=== PATIENT | female | born 1935 | race Caucasian/White ===

== ENCOUNTER 2016-10-25 12:17 | Inpatient (IN) | payer MEDICARE, OTHER ==
[2016-10-25] VITALS (23 sets, daily range): BP systolic 122–155; BP diastolic 42–87; PULSE 60–105; RESP 15–25; Ht 157.5 cm; Wt 65.0 kg
[~2016-10-25] VITALS: Ht 157.5 cm; Wt 65.0 kg
[2016-10-25 12:39] LABS: BASOPHILS % 0.3 % (0.0-2.0); EOSINOPHILS % 0.2 % (0.0-7.0); HEMATOCRIT 33.7 % (37.0-47.0); HEMOGLOBIN 11.1 g/dl (12.0-16.0); LYMPHOCYTES # 1.5 10^3/ul (0.8-2.9); LYMPHOCYTES % 15.1 % (15.0-51.0); MEAN CORPUSCULAR HEMOGLOBIN 30.5 pg (29.0-33.0); MEAN CORPUSCULAR HGB CONC 32.9 g/dl (32.0-37.0); MEAN CORPUSCULAR VOLUME 92.6 fl (82.0-101.0); MONOCYTE # 0.5 10^3/ul (0.3-0.9); MONOCYTES % 5.3 % (0.0-11.0); NEUTROPHILS % 78.4 % (39.0-77.0); PLATELET COUNT 242 10^3/UL (140-415); RED BLOOD COUNT 3.64 10^6/ul (4.20-5.40); RED CELL DISTRIBUTION WIDTH 13.8 % (11.5-14.5); WHITE BLOOD COUNT 10.2 10^3/ul (4.8-10.8)
[2016-10-25 12:53] LABS: ALBUMIN 4.2 g/dl (3.3-4.9); ALBUMIN/GLOBULIN RATIO 1.31; CALCIUM 8.9 mg/dl (8.4-10.2); CREATININE 1.42 mg/dl (0.44-1.00); POTASSIUM 4.4 mmol/L (3.5-5.1); TOTAL PROTEIN 7.4 g/dl (6.1-8.1)
--- NOTE | 2016-10-25 12:53 | RADRPT ---
PROCEDURE: XR Chest. CLINICAL INDICATION: Chest pain . TECHNIQUE: Single frontal chest x-ray. COMPARISON: None. FINDINGS: The lungs are clear of acute infiltrates, edema, effusions, or masses. Calcific atherosclerosis of t he aorta and mitral valve is present.. The cardiomediastinal silhouette is unremarkable. The osseou s structures are intact. There is old fracture of the left humeral head. IMPRESSION: No acute cardiopulmonary disease. 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 Old healed fracture of the left humeral head. RPTAT: GG .Mariano Garland MD, MD Date Time Electronically viewed and signed by .Mariano Garland MD, MD on 10/25/2016 12:52 .L/
--- NOTE | 2016-10-25 12:55 | ERA ---
ER Documentation Chief Complaint Date/Time DATE: 10/25/16 TIME: 12:48 Chief Complaint BIB RA FOR EVAL OF BACK PAIN. STEMI IN FIELD EKG. ASA 325MG GIVEN IN FIELD HPI 81-year-old female brought to the emergency department by ambulance for evaluation of a possible STEMI. Patient was in her usual state of health until yesterday which time she began having neck pain that she described as a cramping and pressure-like discomfort that radiated from the top of her chest into both sides of her neck. She had these symptoms throughout the course of the night and this morning passed out. She reported no palpitations or worsening chest pain prior to passing out. I have reviewed the principal technologist pre-hospital care. Pre-hospital vital signs were reviewed. Patient was hypotensive in the field Pre-hospital diagnostic tests were reviewed. Crate Tier EKG noted inferior STEMI Upon arrival, she continues to have neck pain but no chest pain or palpitations. ROS All systems reviewed and are negative except as per history of present illness. PMhx/Soc History of Surgery: Yes (CHOLECYSTECTOMY ) Anesthesia Reaction: No Hx Neurological Disorder: No Hx Respiratory Disorders: No Hx Cardiac Disorders: Yes (HTN) Hx Psychiatric Problems: No Hx Miscellaneous Medical Probl: No Hx Alcohol Use: No Hx Substance Use: No Hx Tobacco Use: No Smoking Status: Never smoker FmHx No history of heart disease Physical Exam Vitals Vital Signs Date Time Temp Pulse Resp B/P Pulse Ox O2 Delivery O2 Flow Rate FiO2 10/25/16 12:39 60 17 125/38 99 2.0 10/25/16 12:23 97.9 55 17 131/49 99 10/25/16 12:20 Nasal Cannula 2 Physical Exam GENERAL: The patient is well developed and appropriate for usual state of health in no apparent distress HEENT: Pupils equal, round, and reactive to light. EOMI. There is no scleral icterus. NECK: C-spine is soft and supple, there is no meningismus. There is no cervical lymphadenopathy. LUNGS: Clear to auscultation bilaterally. There are no rales, wheezes or rhonchi. HEART: Regular rate and rhythm, no murmurs, clicks, rubs or gallops. ABDOMEN: Soft, non-tender, non-distended. There are bowel sounds in all four quadrants. No rebound or guarding. EXTREMITIES: There is no peripheral cyanosis or edema. No focal swelling or erythema. NEURO: The patient moves all four extremities with 5/5 strength. Cranial nerves II - XII are intact. Normal gait. Alert and oriented SKIN: There is no apparent rash or petechiae. HEME/LYMPHATIC: There is no evidence of excessive bruising or lymphedema. PSYCHIATRIC: The patient does not appear anxious or depressed. Result Diagram: 10/25/16 1230 Results 24 hrs Laboratory Tests Test 10/25/16 12:30 White Blood Count 10.210^3/ul Red Blood Count 3.6410^6/ul Hemoglobin 11.1g/dl Hematocrit 33.7% Mean Corpuscular Volume 92.6fl Mean Corpuscular Hemoglobin 30.5pg Mean Corpuscular Hemoglobin Concent 32.9g/dl Red Cell Distribution Width 13.8% Platelet Count 63918^3/UL Mean Platelet Volume 10.0fl Neutrophils % 78.4% Lymphocytes % 15.1% Monocytes % 5.3% Eosinophils % 0.2% Basophils % 0.3% Nucleated Red Blood Cells % 0.0/100WBC Neutrophils # 8.010^3/ul Lymphocytes # 1.510^3/ul Monocytes # 0.510^3/ul Eosinophils # 0.010^3/ul Basophils # 0.010^3/ul Nucleated Red Blood Cells # 0.010^3/ul Procedures/MDM Patient was taken to a room, seen and evaluated. Comfort measures were initiated. Diagnostic tests were ordered and reviewed. 3 LEAD RHYTHM STRIP: Sinus bradycardia Crate Tier 12 lead EKG interpreted by myself: Rate/rhythm: Sinus bradycardia Lincoln/intervals: Normal Ischemia: ST elevations in leads II, III and aVF with reciprocal changes in leads I and aVL Impression: Inferior STEMI Crate Tier EKG was repeated in the field and indicated no significant changes with ongoing STEMI indications EKG upon arrival in the emergency department interpreted by myself: Rate/rhythm: Normal sinus rhythm Lincoln/intervals: Normal Ischemia: Nonspecific ST and T-wave changes with no ST elevation Impression: Nonspecific EKG with the inferior ST elevation changes resolved RADIOLOGY: reviewed with the radiologist CONSULTATION: Code STEMI was called pre-arrival. Dr. Johnson, our on-call exterminator helper termite was called prior to arrival. hospitalist was notified for admission REEVALUATION: Patient had no bradycardia or dysrhythmia. Arrangements were made to the hospital via the maintenance shop laborer MEDICAL DECISION MAKIN-year-old female presents with symptoms consistent with an inferior ST elevation [place] which is been indicated on her EKG. Patient is taken expeditiously to the [facility] for emergent PCI Departure Diagnosis: Primary Impression: ST elevation myocardial infarction (STEMI) Condition: Critical ANDREA GRULLON Oct 25, 2016 12:55
[2016-10-25 13:09] LABS: TROPONIN-I 0.222 ng/ml (0.00-0.12)
--- NOTE | 2016-10-25 14:01 | SIPON ---
Date/Time of Note Date/Time of Note DATE: 10/25/16 TIME: 13:59 Operative Report Preoperative Diagnosis 1.Acute PR/STEMI 2.Syncope 3.Chest pain Postoperative Diagnosis 1.Obstructive cad LMN/ostial LAD/mid LAD Operation/Procedure Performed 1.[facility] Surgeon see signature line transition assistant Maurice Márquez Anesthesia: moderate sedation Estimated blood loss: minimal Transfusion Required none Specimen NA Grafts/Implants none Complications none AMNA FUENTES Oct 25, 2016 14:01
[2016-10-25] MEDS ORDERED: SOD CHLORIDE 0.9% 1,000 ML IV SCH (14:02)
[2016-10-25] MEDS ORDERED: HEPARIN 1000 UNITS/ML 10 ML INJ IV ONE (14:30)
[2016-10-25] MEDS ORDERED: AL HYDROX/MG HYDROX/SIMETH 30 ML CUP PO PRN (14:30)
[2016-10-25] MEDS ORDERED: ACETAMINOPHEN 325 MG TAB PO PRN (14:30)
[2016-10-25] MEDS ORDERED: ONDANSETRON 4 MG INJ IV PRN (14:30)
[2016-10-25] MEDS ORDERED: HEPARIN 1000 UNITS/ML 10 ML INJ IV PRN ×3 (14:30→17:00)
[2016-10-25] MEDS ORDERED: HEPARIN 1000 UNITS/ML 10 ML INJ IV SCH (15:00)
[2016-10-25] MEDS ORDERED: HEPARIN 25000 UNITS/D5W 250 ML IV SCH ×2 (15:00→17:00)
[2016-10-25 15:30] LABS: INR 1.14; PROTIME 14.6 Sec (12.2-14.2); PT RATIO 1.1
--- NOTE | 2016-10-25 15:51 | RADRPT ---
Echocardiogram Report Patient Name: RACHEL GERBER Gender: Female Date: 1935 Study Date: 25-Oct-2016 Photogravure Press Operator: Italo Anand RDCS Location: PACU Ref. Physician: AMNA JOHNSON Quality: Adequate Procedures: Transthoracic echocardiogram with complete 2D, M-Mode, and doppler examination. Indications: NSTEMI. 2D/M Mode Doppler Measurement Value Normal Ranges Measurement Value Normal Ranges LVIDd 2D 2.8 3.5 - 5.6 cm LVOT Peak Del 0.7 m/sec LVIDs 2D 1.6 2.1 - 4.1 cm LVOT Peak PG 2.0 mmHg LVPWd 2D 1.0 0.6 - 1.1 cm MV E Peak Del 0.9 m/sec IVSd 2D 1.1 0.6 - 1.1 cm MV A Peak Del 1.1 m/sec AoR Diam 2D 2.2 2.0 - 3.7 cm MV E/A 0.9 EDV 2D 30.5 cm3 MV Decel Time 241 msec ESV 2D 4.3 cm3 MV Decel Stanly 4 LA Dimen 2D 3.5 2.3 - 4.0 cm MV E/A 0.9 TR Peak Del 3.1 m/sec TR Peak PG 37.4 mmHg RVSP 52.0 mmHg Findings Left Ventricle: Normal left ventricular systolic function. Normal left ventricular cavity size. Mild concentric left ventricular hypertrophy. Ejection fraction is visually estimated at 5560 %. Tissue Doppler/Mitral Doppler indices are consistent with impaired relaxation (Stage I diastolic dysfunction). These segments of the LV are hypokinetic anteroseptum mid segment. Right Ventricle: Normal right ventricular size. Normal right ventricular systolic function. Left Atrium: The left atrium is normal in size. Right Atrium: There is moderate enlargement of right atrium. Mitral Valve: Moderate mitral annular calcification. Mild mitral valve regurgitation. Aortic Valve: No significant aortic stenosis or insufficiency. Aortic cusps appear mildly calcified. Tricuspid Valve: Estimated peak PA systolic pressure 52 mmHg. Tricuspid valve appears mildly thickened. There is moderate tricuspid regurgitation. Pulmonic Valve: Normal pulmonic valve appearance. Pericardium: Normal pericardium with no significant pericardial effusion. Aorta: Normal aortic root. IVC: Dilated IVC without respiratory collapse consistent with elevated right atrial pressure. Conclusions 1.Normal left ventricular systolic function. Normal left ventricular cavity size. Mild concentric left ventricular hypertrophy. Ejection fraction is visually estimated at 55-60 %. Tissue Doppler/Mitral Doppler indices are consistent with impaired relaxation (Stage I diastolic dysfunction). These segments of the LV are hypokinetic anteroseptum mid segment. 2.Moderate mitral annular calcification. Mild mitral valve regurgitation. 3.Estimated peak PA systolic pressure 52 mmHg. Tricuspid valve appears mildly thickened. There is moderate tricuspid regurgitation. 4.There is moderate enlargement of right atrium. Electronically Signed By: Amna Johnson 25-Oct-2016 15:51:05 -0700 Patient Name: RACHEL GERBER Study Date: 25-Oct-2016 [id number]
--- NOTE | 2016-10-25 15:51 | OPR ---
DATE OF OPERATION: 10/25/2016 OPERATION PERFORMED: 1. Left heart catheterization. 2. Coronary angiography. ATTENDING PHYSICIAN: Dr. Parviz Johnson. REFERRING PHYSICIAN: Dr. Yanick Carlton. ANESTHESIA: Conscious and local. INDICATION: Possible acute myocardial infarction. BRIEF HISTORY: Ms. Nadia Adam is an 81-year-old female who initially presented status post syncopal episode, some back and jaw pain and had inferior ST elevations by EKG. Given these findings, she was brought to cardiac tag and label cutter to assess possibility of significant coronary artery disease leading to ST elevations and acute myocardial infarction. OPERATIVE PROCEDURE: After informed consent was obtained, patient was taken to the [facility] Cardiac Resident Associate, where her right area was prepped and draped in the sterile fashion. 2 percent lidocaine was infiltrated in the right radial in order to achieve adequate local anesthesia. Modified Seldinger technique, the radial was cannulated and a 6 sheath was placed, a 5-Austrian JL3 was used to cannulate left main coronary ostium successfully. Subsequent this was exchanged for a Edison catheter and was used to cannulate the left main coronary ostium, which was very short and kept flexing and cannulating into the circ refluxing to the LAD. After which contrast injection and multiple views were obtained. Edison was then used to cannulate the right unsuccessfully. This was exchanged for a HJR which still accessible and finally a Segun right posterior. A 5- Austrian was used to cannulate the right coronary ostium and contrast injection was used with multiple views of the right coronary artery was obtained. At this time this was removed and used a Q3 to better cannulate the left main into the LAD and further images were undertaken to ascertain if the patient had an ostial LAD lesion or a distal left main lesion. After which this was removed and at this time the patient started having spasm in her vessel as we attempted to pass the catheter and it was elected to stop the procedure. This completed procedure and there were no complications. Sheath was removed. TR band was applied. At this time the patient received a radial cocktail of 2.5 mg of verapamil, 200 mcg of IC nitroglycerin and later received 2005 gram of heparin IV. FINDINGS: Coronary angiography. Left main short, almost nonexistent with the appearance of probable left main lesion of the ostial LAD with left main hazy and appears to be subtotally occluded. A 2.5 mm vessel in the LAD, there is another hazy area with approximately 70-80 percent. In the midportion LAD there is another lesion approximately 40 percent in the LAD. In the very distal portion has another lesion of approximately 80 percent. There is a proximal branching diagonal, 2 mm vessel, which also appears to have ostial stenosis of approximately 60-70 percent. The circumflex approximately is a 2.5 mm vessel, and appears to have an ostial 30 to 40 percent stenosis. The remainder of the circ thereafter is free of significant focal stenosis. The right coronary artery proximally is a 2.5 mm vessel, and likely appears to have an ostial stenosis as well., probable 60 percent. Midportion right coronary artery is 40 to 50 percent stenosis. TOTAL FLUOROSCOPY TIME: 29 minutes. TOTAL CONTRAST: 175 cc. IMPRESSION: 1. Likely left main extending into ostial left anterior descending (LAD) high-grade with additional mid left anterior descending (LAD) high-grade stenosis. 2. Ostial right coronary artery stenosis. RECOMMENDATIONS: 1. Maximize medical management. 2. The patient admitted to the ICU for post cath observation. Continue him observation for presenting symptoms. 3. We will obtain cardiac surgical consult given distal left main and also for consideration of possible coronary artery bypass graft surgery. 4. Obtain 2D echo to assess the patient's baseline ejection fraction. Dictated By: Parviz Johnson MD /martin/sharon /Document#: [id number]
[2016-10-25] MEDS ORDERED: NACL 0.9% 3 ML SYG IV SCH (16:00)
[2016-10-25 16:02] LABS: PARTIAL THROMBOPLASTIN TIME 93.2 Sec (25.0-35.0)
--- NOTE | 2016-10-25 16:29 | CONS ---
Date/Time of Note Date/Time of Note DATE: 10/25/16 TIME: 16:22 Assessment/Plan Assessment/Plan Additional Assessment/Plan 81 year old female with ostial LAD and moderate RCA stenosis. I discussed with patient and her daughter the benefits, risks and alternatives of surgery. The risks are but not limited to bleeding, infection, stroke, renal and respiratory failure and . She understands and consents. I will obtain carotid duplex and plan for surgery tomorrow. Consultation Date/Type/Reason Admit Date/Time Oct 25, 2016 at 14:03 Date of Consultation: Oct 25, 2016 Reason for Consultation evaluate for CABG Referring Provider: AMNA FUENTES Hx of Present Illness 81 year old female who was having chest pain last night and this morning and felt faint after going to the bathroom. She then had emesis and was brought in by paramedics and in the ER she was found to have ST elevation. She was taken to soap slabber and found to have ostial LAD and 50-60% mid RCA. She currently has no chest pain and her EKG has normalized. We are asked to see her regarding CABG. Constitutional: No chills, No diaphoresis, No disoriented, No febrile, No improved, No no complaints, No other, No poor po, No requiring IVF, No requiring O2 Eyes: No discharge, No no complaints, No other, No pain, No redness, No visual change ENT: No bleeding, No congestion, No discharge, No dysphagia, No no complaints, No other, No pain, No sore throat Respiratory: No cough, No no complaints, No other, No pain, No pleuritic pain, No shortness of breath, No sputum, No wheezing Cardiovascular: chest pain Gastrointestinal: No blood, No constipation, No decreased appetite, No diarrhea , No flatus, No nausea, No no complaints, No other, No pain, No passing stool, No vomiting Genitourinary: No bleeding, No discharge, No dysuria, No flank pain, No hematuria, No no complaints, No other Musculoskeletal: No back pain, No bone/joint pain, No neck pain, No no complaints, No other, No restricted range of motion, No swelling Skin: No bruising, No erythema, No laceration, No no complaints, No other, No pruritis, No rash, No skin lesions Neurologic: No confusion, No dizziness, No focal-weakness, No headache, No no complaints, No other, No seizure, No syncope Endocrine: No dry skin, No no complaints, No other, No polydypsia, No polyuria , No temp intolerance Lymphatic: No adenopathy, No lymphadema, No no complaints, No other, No tender nodes Psychological: No anxiety, No confusion, No depression, No nl mood/affect, No no complaints, No other, No suicidal Immunologic: No immunodeficiency, No no complaints, No other, No pruritis, No rhinitis, No urticaria Past Medical History Medical History: hypertension Past Surgical History Past Surgical Hx: cholecystectomy Social History Alcohol Use: none Smoking Status: Never smoker Drug Use: none Exam/Review of Systems Vital Signs Vitals Vital Signs Date Time Temp Pulse Resp B/P Pulse Ox O2 Delivery O2 Flow Rate FiO2 10/25/16 15:30 69 19 132/69 99 2.0 10/25/16 14:20 98.2 10/25/16 12:20 Nasal Cannula Exam Constitutional: No alert, No distress, No frail, No non-verbal, No obese, No oriented, No other, No well developed Psych: No anxiety, No confusion, No depression, No nl mood/affect, No no complaints, No other, No suicidal Head: No atraumatic, No hematomas, No lacerations, No normocephalic, No other Eyes: No EOMI, No PERRL, No fundi, disc, No icteric, No nl conjunctiva, No nl lids, No nl sclera, No other ENMT: No intubated, No mucosa pink and moist, No nl external ears & nose, No nl lips & teeth, No nl nasal mucosa & septum, No other, No tympanic membranes Neck: No bruits, No jvd, No masses, No non-tender, No nuchal rigidity, No other , No supple, No thyromegaly Respiratory: No clear to auscultation, No congested cough, No crackles/rales, No diminished breath sounds, No intercostal retraction, No labored breathing, No normal air movement, No other, No respirations, No tactile fremitus, No wheezing Cardiovascular: No S3, No S4, No bruits, No diastolic murmur, No edema, No gallop, No irregular rhythm, No jugular venous distention (JVD), No murmurs/ extra sounds, No nl pulses, No other, No regular rate and rhythm, No rub, No systolic murmur Gastrointestinal: No ascites, No bowel sounds, No distended, No firm, No hepatomegaly, No mass, No nl liver, spleen, No non-tender, No other, No rebound or guarding, No soft, No splenomegaly, No surgical scars, No tender Genitourinary - Female: No CMT, No CVA tenderness, No nl adnexae, No nl external genitalia, No other, No uterus Musculoskeletal: No joint tenderness, No muscle tone, No muscle weakness, No nl extremities to inspection, No nl gait and stance, No other, No range of motion, No spine non-tender, No swelling Extremities: No calf tenderness, No clubbing, No cyanosis, No edema, No normal pulses, No other, No palpable cord, No pitting pedal edema, No tenderness Neurological: No RADIO TIME BUYER II-XII intact, No DTR's symmetric, No confused, No focal weakness, No lethargic, No nl mental status, No nl speech, No nl strength, No numbness, No other, No reflexes, No unresponsive Skin: No diaphoresis, No ecchymosis, No laceration, No nl turgor, No other, No puncture, No rash or lesions Lymph: No enlarged, No nl lymph nodes, No nontender, No other Results Result Diagram: 10/25/16 1230 10/25/16 1230 Results 24 hrs Laboratory Tests Test 10/25/16 12:30 10/25/16 15:00 White Blood Count 10.2 Red Blood Count 3.64 L Hemoglobin 11.1 L Hematocrit 33.7 L Mean Corpuscular Volume 92.6 Mean Corpuscular Hemoglobin 30.5 Mean Corpuscular Hemoglobin Concent 32.9 Red Cell Distribution Width 13.8 Platelet Count 242 Mean Platelet Volume 10.0 Neutrophils % 78.4 H Lymphocytes % 15.1 Monocytes % 5.3 Eosinophils % 0.2 Basophils % 0.3 Nucleated Red Blood Cells % 0.0 Neutrophils # 8.0 H Lymphocytes # 1.5 Monocytes # 0.5 Eosinophils # 0.0 Basophils # 0.0 Nucleated Red Blood Cells # 0.0 Sodium Level 135 Potassium Level 4.4 Chloride Level 106 Carbon Dioxide Level 12 L Anion Gap 21 H Blood Urea Nitrogen 30 H Creatinine 1.42 H Glucose Level 193 Calcium Level 8.9 Total Bilirubin 1.0 Direct Bilirubin 0.00 Indirect Bilirubin 1.0 Aspartate Amino Transf (AST/SGOT) 54 H Alanine Aminotransferase (ALT/SGPT) 38 Alkaline Phosphatase 81 Troponin I 0.222 *H Total Protein 7.4 Albumin 4.2 Globulin 3.20 Albumin/Globulin Ratio 1.31 Prothrombin Time 14.6 H Prothrombin Time Ratio 1.1 INR International Normalized Ratio 1.14 Activated Partial Thromboplast Time 93.2 *H Medications Medications Current Medications Acetaminophen (Tylenol Tab) 650 mg Q4H PRN PO NON-CARDIAC PAIN LEVEL (1-3); Start 10/25/16 at 14:30 Al Hydrox/Mg Hydrox/Simethicone (Mag-Al Plus) 30 ml Q4H PRN PO GASTROINTESTINAL UPSET; Start 10/25/16 at 14:30 Ondansetron HCl 4 mg 4 mg Q4H PRN IV NAUSEA AND/OR VOMITING; Start 10/25/16 at 14:30 Sodium Chloride (NS) 1,000 ml @ 75 mls/hr [id number] IV Last administered on 10/25t 14:47; Admin Dose 75 MLS/HR; Start 10/25/16 at 14:02; Stop 10/25/16 at 19: 01 Heparin Sodium (Porcine) 3900 unit 3,900 unit ONCE IV ; Start 10/25/16 at 15:00 ; Stop 10/25/16 at 23:59 Heparin Sodium (Porcine) (Heparin 97377 Units/250 ml) 250 ml @ 7.5 mls/hr Q24H IV ; Start 10/25/16 at 15:00 Heparin Sodium (Porcine) (Heparin (1000 Units/ml)) PRN PRN IV PENDING LAB VALUE; Start 10/25/16 at 15:00 Miscellaneous Information (* Miscellaneous Pharmacy Order) Discontinue current oral sulfonylur... ONCE ONCE XX ; Start 10/25/16 at 16:00; Stop 10/25/16 at 16: 01; Status UNV Diagnostic Test (Pha) (Accu-Chek) 1 ea 02 XX ; Start 10/26/16 at 02:00; Status UNV Insulin Glargine (Lantus) 10 unit DAILY@08 SC ; Start 10/26/16 at 08:00; Status UNV Miscellaneous Information (* Miscellaneous Pharmacy Order) HYPOGLYCEMIA PROTOCOL w... ONCE ONCE XX ; Start 10/25/16 at 16:00; Stop 10/25/16 at 16:01; Status UNV Miscellaneous Information (* Miscellaneous Pharmacy Order) Discontinue all previ... ONCE ONCE XX ; Start 10/25/16 at 16:00; Stop 10/25/16 at 16:01; Status UNV Insulin Aspart (Novolog Insulin Pen) NOVOLOG *MILD* ALGORI... Q4 SC ; Start at 17:00; Status UNV Miscellaneous Information (* Miscellaneous Pharmacy Order) Discontinue all previ... ONCE ONCE XX ; Start 10/25/16 at 16:00; Stop 10/25/16 at 16:01; Status UNV Aspirin (Aspirin) 81 mg DAILY PO ; Start 10/26/16 at 09:00; Status UNV Atorvastatin Calcium 80 mg 80 mg HS PO ; Start 10/25/16 at 21:00; Status UNV Insulin Human Regular 100 unit/ Sodium Chloride 100 ml @ 0 mls/hr Q0M ONCE IVPB ; Start 10/26/16 at 09:00; Stop 10/26/16 at 09:01 Norepinephrine 250 ml @ 0 mls/hr ONCE ONCE IV ; Start 10/26/16 at 09:00; Stop 10/26/16 at 09:01 Epinephrine 4 mg/ Dextrose 250 ml @ 0 mls/hr Q0M ONCE IV ; Start 10/26/16 at 09: 00; Stop 10/26/16 at 09:01 Phenylephrine HCl (Pedro-Syneph) 250 ml @ 0 mls/hr ONCE ONCE IV ; Start 10/26/16 at 09:00; Stop 10/26/16 at 09:01 Aspirin 600 mg 600 mg ONCE ONCE [place] ; Start 10/26/16 at 09:00; Stop 10/26/16 at 09:01 Heparin Sodium (Porcine) 85273 unit/Milrinone Lactate 10 mg/ Sodium Chloride 1, 011 ml @ 0 mls/hr ONCE ONCE SC ; Start 10/26/16 at 09:00; Stop 10/26/16 at 09: 01 Milrinone Lactate 2 mg/Sodium Chloride 52 ml @ 0 mls/hr ONCE ONCE IV ; Start at 09:00; Stop 10/26/16 at 09:01 Cefazolin Sodium/ Dextrose (Ancef 2 Gm/50 ml (Pmx)) 50 ml @ 100 mls/hr PRE-OP ONCE IVPB ; Start 10/25/16 at 16:30; Stop 10/25/16 at 16:59; Status UNV MOUNA CONNER MD Oct 25, 2016 16:29
[2016-10-25] MEDS ORDERED: GLUCOSE GEL 15 GRAM TUBE BUCCAL PRN (16:30)
[2016-10-25] MEDS ORDERED: DEXTROSE 50% 50 ML SYRINGE IV PRN ×2 (16:30)
[2016-10-25] MEDS ORDERED: CEFAZOLIN 2 GM/50 ML (PMX) 50 ML IVPB ONE (16:30)
[2016-10-25] MEDS ORDERED: GLUCAGON 1 MG INJ IM PRN (16:30)
[2016-10-25] MEDS ORDERED: GLUCOSE GEL 15 GRAM TUBE PO PRN ×2 (16:30)
--- NOTE | 2016-10-25 16:52 | RADRPT ---
PROCEDURE: Portable chest x-ray. CLINICAL INDICATION: 81 years of age, female. Preop open heart surgery. Code STEMI. TECHNIQUE: Portable AP view of the chest. COMPARISON: Chest x-ray from earlier the same day FINDINGS: Atherosclerotic calcification thoracic aorta. Normal heart size. There is dense calcification of the mitral valve annulus. Mediastinal contours are normal. Decreased lung volumes with vascular crowding versus mild edema. Negative for focal lung consolidati on. Negative for pleural effusion or pneumothorax. Bones are osteopenic. There is deformity of the proximal left humerus from an age indeterminate frac ture that is unchanged from prior exam. IMPRESSION: Decreased lung volumes with vascular crowding versus mild edema. Age indeterminate fracture deformity proximal left humerus is unchanged from prior exam. If there is left shoulder pain, recommend dedicated left shoulder x-rays. RPTAT: HCTS Physician Jossie Date Time Electronically viewed and signed by Physician Jossie on 10/25/2016 16:51 /
[2016-10-25] MEDS: INSULIN ASPART [NOVOLOG] 3 ML PEN SC SCH ×4 (17:00→20:37)
--- NOTE | 2016-10-25 17:18 | RADRPT ---
PROCEDURE: US Carotids. CLINICAL INDICATION: Preop CABG. TECHNIQUE: Multiple sonographic of the carotid arteries were obtained utilizing johnson scale imaging . Color and Doppler imaging was performed. The images were reviewed on a PACS workstation. COMPARISON: No prior studies are available for comparison. FINDINGS: Location Right Left CCA 89 cm/sec 83 cm/sec Prox ICA 88 cm/sec 42 cm/sec Mid ICA 90 cm/sec 49 cm/sec Dist ICA 73 cm/sec 58 cm/sec ECA 83 cm/sec 81 cm/sec ICA/CCA 1.0 0.9 Antegrade flow is seen within the vertebral arteries bilaterally. Moderate to heavy bilateral athero sclerotic plaque is present, especially in the left proximal common carotid artery and in the right mid internal carotid artery. No hemodynamically significant stenosis or occlusion is identified. IMPRESSION: 1. Moderate to heavy bilateral atherosclerotic plaque as above without evidence for focal hemodynami leola significant stenosis - validated velocity measurements with angiographic measurements, velocit y criteria are extrapolated from diameter data as defined by the Society of Radiologists in Ultrasou nd Consensus Conference Radiology 2003; 229;340-346. This study does indirectly reference the measu rement of the distal ICA diameter as the denominator for stenosis measurement. 2. Antegrade flow seen within the vertebral arteries bilaterally. SRU Consensus Conference Criteria for the Diagnosis of Carotid Artery Stenosis Degree of Stenosis, % ICA PSV, cm/sec Plaque Estimate, % ICA/CCA PSV Ratio Normal <125 None <2.0 <50 <125 <50 <2.0 50 69 125-230 >50 2.0-4.0 >70 but less than near occlusion >230 >50 <4.0 Near occlusion High, low, or undetectable Visible Variable Total occlusion Undetectable Visible, no detectable lumen Not applicable *Cartoid artery stenosis: johnson-scale and Doppler US diagnosis. Society of Radiologists in Ultrasound Consensus Conference. Radiology 2003; 229: 340-346 RPTAT: JJ .Gene Knowles MD, Date Time Electronically viewed and signed by .Gene Knowles MD, MD on 10/25/2016 17:18 .A/
[2016-10-25 19:40] LABS: CK-MB 3.99 ng/ml (0.0-2.4)
[2016-10-25 19:54] LABS: TROPONIN-I 0.455 ng/ml (0.00-0.12)
[2016-10-25] MEDS ORDERED: ATORVASTATIN 80 MG TAB PO SCH (21:00)
[2016-10-26] VITALS (24 sets, daily range): BP systolic 85–153; BP diastolic 27–77; PULSE 66–150; RESP 10–28; TEMP 94.3–95.4
[2016-10-26] MEDS ORDERED: ACCU-CHEK XX SCH (02:00)
[2016-10-26 02:19] LABS: CK-MB 3.47 ng/ml (0.0-2.4)
[2016-10-26 02:24] LABS: TROPONIN-I 0.543 ng/ml (0.00-0.12)
[2016-10-26 06:14] LABS: BASOPHILS % 0.5 % (0.0-2.0); EOSINOPHILS # 0.1 10^3/ul (0.0-0.5); EOSINOPHILS % 0.8 % (0.0-7.0); HEMATOCRIT 30.4 % (37.0-47.0); HEMOGLOBIN 10.3 g/dl (12.0-16.0); LYMPHOCYTES # 1.9 10^3/ul (0.8-2.9); LYMPHOCYTES % 24.3 % (15.0-51.0); MEAN CORPUSCULAR HEMOGLOBIN 30.2 pg (29.0-33.0); MEAN CORPUSCULAR HGB CONC 33.9 g/dl (32.0-37.0); MEAN CORPUSCULAR VOLUME 89.1 fl (82.0-101.0); MEAN PLATELET VOLUME 10.3 fl (7.4-10.4); MONOCYTE # 0.8 10^3/ul (0.3-0.9); MONOCYTES % 9.7 % (0.0-11.0); NEUTROPHIL # 5.1 10^3/ul (1.6-7.5); NEUTROPHILS % 64.3 % (39.0-77.0); PLATELET COUNT 210 10^3/UL (140-415); RED BLOOD COUNT 3.41 10^6/ul (4.20-5.40); RED CELL DISTRIBUTION WIDTH 13.8 % (11.5-14.5); WHITE BLOOD COUNT 7.9 10^3/ul (4.8-10.8)
[2016-10-26] MEDS ORDERED: HEPARIN 1000 UNITS/ML 10 ML INJ ONE ×7 (06:48→17:09)
[2016-10-26] MEDS ORDERED: VANCOMYCIN 1 GM INJ ONE (06:48)
[2016-10-26 06:59] LABS: ALBUMIN 3.5 g/dl (3.3-4.9); ALBUMIN/GLOBULIN RATIO 1.16; BILIRUBIN,INDIRECT 2.1 mg/dl (0-1.1); BILIRUBIN,TOTAL 2.1 mg/dl (0.2-1.3); CALCIUM 9.1 mg/dl (8.4-10.2); CREATININE 0.99 mg/dl (0.44-1.00); POTASSIUM 3.7 mmol/L (3.5-5.1); TOTAL PROTEIN 6.5 g/dl (6.1-8.1)
--- NOTE | 2016-10-26 07:06 | CONS ---
DATE OF ADMISSION: 10/25/2016 DATE OF CONSULTATION: 10/25/2016 REASON FOR CONSULTATION: Acute myocardial infarction. REQUESTING PHYSICIAN: Emergency Room attending. HISTORY OF PRESENT ILLNESS: Ms. Adam is an 81-year-old female without prior cardiac history, who initially presented with complaints of back pain and throat pain. Patient had the paramedics called and initial vital signs of 97.9, blood pressure 131/49, pulse 55, respirations 17, saturation 98 percent. Patient's electrocardiogram revealed sinus bradycardia, rate of 57, prominent ectopic atrial bradycardia with inferior ST elevations and lateral reciprocal depressions. The patient received an aspirin en route and was transferred to [facility]. Upon arrival at [facility], the patient's EKG has had resolution of ST elevations. Patient does have some residual chest pain. Patient tells me with family at bedside additionally that she had had pain the previous night and had a possible syncopal episode. Thus far, patient's labs are notable for white count of 10.2, hemoglobin 11.1, platelet count 242,000. Remainder of labs are pending. PAST MEDICAL HISTORY: As above in HPI. MEDICATION: Medications currently in the hospital are pending at this time. ALLERGIES: NO KNOWN DRUG ALLERGIES. SOCIAL HISTORY: No tobacco, EtOH or illicit drug use. FAMILY HISTORY: Negative for sudden cardiac or early CAD. REVIEW OF SYSTEMS: As above in HPI. In addition: CONSTITUTIONAL: No fevers or chills. PULMONARY: Positive for shortness breath. CARDIOVASCULAR: Intermittent chest pain. GASTROINTESTINAL: No vomiting. GENITOURINARY: No hematuria. MUSCULOSKELETAL: Degenerative joint disease. PSYCH: Patient has depression. NEUROLOGIC: No documented history of CVA. PHYSICAL EXAMINATION: VITAL SIGNS: Temperature of 97.9, blood pressure most recently 125/38, pulse 60, respiratory rate 17, saturation 98 percent. GENERAL: The patient is alert, awake, complaining of intermittent chest pain, neck and back pain. NECK: JVP approximately 8 cm water. LUNGS: Fair air movement throughout. HEART: Regular rate and rhythm. Normal S1, S2. A 1/6 systolic murmur. Nondisplaced PMI. ABDOMEN: Positive bowel sounds, soft. EXTREMITIES: No edema, 1+ pulses bilateral posterior tibial LABORATORY: As above in HPI. No further labs reviewed. IMAGING STUDIES: No imaging studies for review this time. ECG as in HPI. No further imaging studies currently to be reviewed at this time. IMPRESSION: 1. Possible acute myocardial infarction by electrocardiogram. 2. Chest pain, possibly secondary to acute myocardial infarction. 3. Syncope. 4. Borderline hypertension. 5. Anemia, acute. RECOMMENDATIONS: 1. At this time, patient will be taken to the cardiac director of labor and delivery in order to assess possibility of significant obstructive coronary artery disease or obstructive lesion leading to symptoms of syncope and ST elevation on initial EKG. 2. Patient was given an aspirin. 3. Further recommendations for this patient will be made after completion of study. Dictated By: Parviz Johnson MD /martin/luzmaria /Document#: [id number] CC: Yanick Carlton MD;*[facility]*
[2016-10-26] MEDS: INSULIN ASPART [NOVOLOG] 3 ML PEN SC SCH (07:35)
[2016-10-26] MEDS ORDERED: INSULIN GLARGINE [LANtus] 3 ML PEN SC SCH (08:00)
[2016-10-26] MEDS ORDERED: MIDAZOLAM 5 ML ONE ×2 (08:44→11:30)
[2016-10-26] MEDS ORDERED: VANCOMYCIN 500MG INJ IMPLANTED ONE (08:45)
[2016-10-26] MEDS ORDERED: HEPARIN 1000 UNITS/ML 10 ML INJ IRR ONE (08:45)
[2016-10-26] MEDS ORDERED: PHENYLephrine (100 MCG/ML) 5ML SYG ONE ×4 (08:47→16:19)
[2016-10-26] MEDS ORDERED: CEFAZOLIN 2 GM/50 ML (PMX) 50 ML IVPB SCH (09:00)
[2016-10-26] MEDS ORDERED: HEPARIN (10000 UNITS/ML) 10,000 UNIT, MILRINONE LACTATE 10 MG in SOD CHLORIDE 0.9% 1,00... SC ONE (09:00)
[2016-10-26] MEDS ORDERED: EPINEPHrine 4 MG in DEXTROSE 5% 246 ML IV ONE (09:00)
[2016-10-26] MEDS ORDERED: PHENYLephrine 20MG IN 250 ML 250 ML IV ONE ×2 (09:00→19:00)
[2016-10-26] MEDS ORDERED: ASPIRIN 600 MG SUPP PR ONE (09:00)
[2016-10-26] MEDS ORDERED: ASPIRIN 81 MG TAB PO SCH (09:00)
[2016-10-26] MEDS ORDERED: NORepinephrine 8MG/250 ML (PMX 250 ML IV ONE (09:00)
[2016-10-26] MEDS ORDERED: MILRINONE LACTATE 2 MG in SOD CHLORIDE 0.9% 50 ML IV ONE (09:00)
[2016-10-26] MEDS ORDERED: INSULIN HUMAN REGULAR 100 UNIT in SOD CHLORIDE 0.9% 99 ML IVPB ONE (09:00)
[2016-10-26] MEDS ORDERED: ALBUMIN HUMAN 25% 200 ML ONE (09:06)
[2016-10-26] MEDS ORDERED: AMINOCAPROIC ACID 5 GM INJ ONE ×4 (09:06→19:21)
[2016-10-26] MEDS ORDERED: POTASSIUM CHLORIDE 40 MEQ INJ ONE (09:06)
[2016-10-26] MEDS ORDERED: CA CHLORIDE 10% 10 ML SYRINGE ONE ×2 (09:06→22:16)
[2016-10-26] MEDS ORDERED: LIDOCAINE 100 MG SYRINGE ONE (09:06)
[2016-10-26] MEDS ORDERED: PHENYLephrine 10 MG INJ ONE (09:06)
[2016-10-26] MEDS ORDERED: NA BICARBONATE 8.4% 50 ML SYG ONE ×3 (09:06→22:23)
[2016-10-26] MEDS ORDERED: MAGNESIUM SULFATE (MG) 50% 10 ML INJ ONE (09:06)
[2016-10-26] MEDS ORDERED: MANNITOL 25% 150 ML ONE (09:06)
[2016-10-26] MEDS ORDERED: PAPAVERINE 60 MG INJ IRR ONE (09:30)
[2016-10-26] MEDS ORDERED: CEFAZOLIN 1 GM INJ ONE ×3 (09:41→18:24)
[2016-10-26] MEDS ORDERED: PAPAVERINE 60 MG INJ ONE (10:08)
[2016-10-26] MEDS ORDERED: FUROSEMIDE 20 MG INJ ONE (10:58)
--- NOTE | 2016-10-26 11:29 | CONS ---
Date/Time of Note Date/Time of Note DATE: 10/26/16 TIME: 11:22 Assessment/Plan Assessment/Plan Chief Complaint/Hosp Course IMPRESSION: 1. Acute DC-minimally positive troponin 2.Cad-obstructive high grade ostail LAD with almost absence of true LMN(Thus LMN equivalent lesion). 2. Chest pain-secondary to DC 3. Syncope-in setting of acute DC and intial ASHLEY on ECG 4. Borderline hypertension. 5. Anemia, acute. Recc: -Tele -serial ecg's -Continue heparin -start statin -low dose BB -to OR roday for cabg Problems: Consultation Date/Type/Reason Admit Date/Time Oct 25, 2016 at 14:03 Initial Consult Date 10/25/16 Type of Consultation: cardiology Reason for Consultation Acute DC Referring Provider: AMNA FUENTES Exam/Review of Systems Vital Signs Vitals Vital Signs Date Time Temp Pulse Resp B/P Pulse Ox O2 Delivery O2 Flow Rate FiO2 10/26/16 08:00 71 10/26/16 08:00 98.0 16 147/77 100 Room Air 10/25/16 15:30 2.0 Intake and Output 10/25/16 10/25/16 10/26/16 15:00 23:00 07:00 Intake Total 0 ml 637.5 ml 45.5 ml Output Total 550 ml 404 ml 670 ml Balance -550 ml 233.5 ml -624.5 ml Exam Review of Systems: CONSTITUTIONAL: No fevers, chills. PULMONARY: mild sob CARDIOVASCULAR: No chest pain/palpitations GASTROINTESTINAL: No nausea/vomiting. GENITOURINARY: No hematuria/dysuria. MUSCULOSKELETAL: No myagias/arthalgias. PSYCHIATRIC: The patient denies depression. NEUROLOGIC: No weakness Constitutional: alert Psych: no complaints Head: normocephalic ENMT: mucosa pink and moist Neck: jvd, supple Respiratory: diminished breath sounds (at bases/B) Cardiovascular: regular rate and rhythm Gastrointestinal: non-tender, soft Musculoskeletal: muscle tone (normal) Extremities: edema (none) Neurological: other (No focal deficits) Results Result Diagram: 10/26/16 0546 10/26/16 0546 Results 24 hrs Laboratory Tests Test 10/25/16 12:30 10/25/16 15:00 10/25/16 17:10 10/25/16 18:43 White Blood Count 10.2 Red Blood Count 3.64 L Hemoglobin 11.1 L Hematocrit 33.7 L Mean Corpuscular Volume 92.6 Mean Corpuscular Hemoglobin 30.5 Mean Corpuscular Hemoglobin Concent 32.9 Red Cell Distribution Width 13.8 Platelet Count 242 Mean Platelet Volume 10.0 Neutrophils % 78.4 H Lymphocytes % 15.1 Monocytes % 5.3 Eosinophils % 0.2 Basophils % 0.3 Nucleated Red Blood Cells % 0.0 Neutrophils # 8.0 H Lymphocytes # 1.5 Monocytes # 0.5 Eosinophils # 0.0 Basophils # 0.0 Nucleated Red Blood Cells # 0.0 Sodium Level 135 Potassium Level 4.4 Chloride Level 106 Carbon Dioxide Level 12 L Anion Gap 21 H Blood Urea Nitrogen 30 H Creatinine 1.42 H Glucose Level 193 Calcium Level 8.9 Total Bilirubin 1.0 Direct Bilirubin 0.00 Indirect Bilirubin 1.0 Aspartate Amino Transf (AST/SGOT) 54 H Alanine Aminotransferase (ALT/SGPT) 38 Alkaline Phosphatase 81 Troponin I 0.222 *H 0.455 *H Total Protein 7.4 Albumin 4.2 Globulin 3.20 Albumin/Globulin Ratio 1.31 Prothrombin Time 14.6 H Prothrombin Time Ratio 1.1 INR International Normalized Ratio 1.14 Activated Partial Thromboplast Time 93.2 *H Bedside Glucose 113 Creatine Kinase 132 Creatine Kinase Index 3.0 Creatinine Kinase MB (Mass) 3.99 H Test 10/25/16 20:31 10/25/16 22:52 10/26/16 01:23 10/26/16 05:46 Bedside Glucose 125 Activated Partial Thromboplast Time 101.7 *H 133.9 *H Creatine Kinase 145 Creatine Kinase Index 2.4 Creatinine Kinase MB (Mass) 3.47 H Troponin I 0.543 *H White Blood Count 7.9 # Red Blood Count 3.41 L Hemoglobin 10.3 L Hematocrit 30.4 L Mean Corpuscular Volume 89.1 Mean Corpuscular Hemoglobin 30.2 Mean Corpuscular Hemoglobin Concent 33.9 Red Cell Distribution Width 13.8 Platelet Count 210 Mean Platelet Volume 10.3 Neutrophils % 64.3 Lymphocytes % 24.3 Monocytes % 9.7 Eosinophils % 0.8 Basophils % 0.5 Nucleated Red Blood Cells % 0.0 Neutrophils # 5.1 Lymphocytes # 1.9 Monocytes # 0.8 Eosinophils # 0.1 Basophils # 0.0 Nucleated Red Blood Cells # 0.0 Sodium Level 137 Potassium Level 3.7 Chloride Level 107 Carbon Dioxide Level 24 # Anion Gap 10 # Blood Urea Nitrogen 22 H Creatinine 0.99 Glucose Level 97 # Hemoglobin A1c 5.6 Calcium Level 9.1 Total Bilirubin 2.1 H Direct Bilirubin 0.00 Indirect Bilirubin 2.1 H Aspartate Amino Transf (AST/SGOT) 48 H Alanine Aminotransferase (ALT/SGPT) 44 Alkaline Phosphatase 107 Total Protein 6.5 Albumin 3.5 Globulin 3.00 Albumin/Globulin Ratio 1.16 Test 10/26/16 08:07 Bedside Glucose 104 Medications Medications Current Medications Acetaminophen (Tylenol Tab) 650 mg Q4H PRN PO NON-CARDIAC PAIN LEVEL (1-3); Start 10/25/16 at 14:30 Al Hydrox/Mg Hydrox/Simethicone (Mag-Al Plus) 30 ml Q4H PRN PO GASTROINTESTINAL UPSET; Start 10/25/16 at 14:30 Ondansetron HCl (Zofran Inj) 4 mg Q4H PRN IV NAUSEA AND/OR VOMITING; Start at 14:30 Diagnostic Test (Pha) (Accu-Chek) 1 ea 02 XX ; Start 10/26/16 at 02:00 Insulin Glargine (Lantus) 10 unit DAILY@08 SC ; Start 10/26/16 at 08:00; Status Future Hold Aspirin (Aspirin) 81 mg DAILY PO ; Start 10/26/16 at 09:00; Status Future Hold Atorvastatin Calcium (Lipitor) 80 mg HS PO Last administered on 10/25/16t 20:36 ; Admin Dose 80 MG; Start 10/25/16 at 21:00 Miscellaneous Information 1 ea NOTE XX ; Start 10/25/16 at 16:30 Glucose (Glutose) 15 gm Q15M PRN PO DECREASED GLUCOSE; Start 10/25/16 at 16:30 Glucose (Glutose) 22.5 gm Q15M PRN PO DECREASED GLUCOSE; Start 10/25/16 at 16: 30 Dextrose (D50w Syringe) 25 ml Q15M PRN IV DECREASED GLUCOSE; Start 10/25/16 at 16:30 Dextrose (D50w Syringe) 50 ml Q15M PRN IV DECREASED GLUCOSE; Start 10/25/16 at 16:30 Glucagon (Glucagen) 1 mg Q15M PRN IM DECREASED GLUCOSE; Start 10/25/16 at 16:30 Glucose 15 gm 15 gm Q15M PRN BUCCAL DECREASED GLUCOSE; Start 10/25/16 at 16:30 Cefazolin Sodium/ Dextrose (Ancef 2 Gm/50 ml (Pmx)) 50 ml @ 100 mls/hr PRE-OP IVPB ; Start 10/26/16 at 09:00; Stop 10/26/16 at 14:30 AMNA FUENTES Oct 26, 2016 11:29
[2016-10-26] MEDS ORDERED: FUROSEMIDE 10 ML ONE ×3 (11:39→15:16)
[2016-10-26] MEDS ORDERED: PROTAMINE 250 MG INJ ONE ×4 (12:50→18:04)
[2016-10-26] MEDS ORDERED: AMIODARONE 150 MG INJ ONE ×2 (14:13→17:07)
[2016-10-26] MEDS ORDERED: DEXAMETHASONE 4 MG/ML 1 ML INJ ONE (14:29)
[2016-10-26] MEDS ORDERED: ALBUMIN HUMAN 25% 100 ML ONE (14:52)
[2016-10-26] MEDS ORDERED: SOD CHLORIDE 0.9% 250 ML IV* ONE ×2 (15:14→20:23)
[2016-10-26] MEDS ORDERED: AMIODARONE 900 MG in DEXTROSE 5% 482 ML IV SCH (17:00)
[2016-10-26] MEDS ORDERED: HEPARIN 10,000 UNITS/ML 1 ML INJ ONE (17:11)
--- NOTE | 2016-10-26 18:33 | HP ---
Date/Time of Note Date/Time of Note DATE: 10/26/16 TIME: 6:00 Assessment/Plan VTE Prophylaxis VTE Prophylaxis Intervention: heparin Lines/Catheters IV [facility]from [facility] Urinary Cath still in place: Yes Reason Cath still needed: urinary retention Assessment/Plan Chief Complaint/Hosp Course 81 yo female presenting with STEMI with obstruction in proximal LAD takeoff of ostium, equivalent to LM disease, pending CABG CAD s/p STEMI: - CABG pending - Statin, heparin ggt - Aspirin daily - Control BP - TTE with normal EF Discharge planning post CABG Problems: HPI/ROS Admit Date/Time Admit Date/Time Oct 25, 2016 at 14:03 Hx of Present Illness 81 yo female without significant PMH who developed CP and syncopized day prior to arrival. Came to ED where found to have mild troponin elevation and inferior ST elevations. Taken urgently to [facility] where angiography showed takeoff of LAD and LCx from ostium, equivialent to LM disease. No intervention thus performed, transferred to ICU where she was scheduled for CABG to be performed today Currently feels well, no complaints ROS Eyes: No discharge, No no complaints, No other, No pain, No redness, No visual change ENT: No bleeding, No congestion, No discharge, No dysphagia, No no complaints, No other, No pain, No sore throat Respiratory: No cough, No no complaints, No other, No pain, No pleuritic pain, No shortness of breath, No sputum, No wheezing Cardiovascular: chest pain Gastrointestinal: No blood, No constipation, No decreased appetite, No diarrhea , No flatus, No nausea, No no complaints, No other, No pain, No passing stool, No vomiting Genitourinary: No bleeding, No discharge, No dysuria, No flank pain, No hematuria, No no complaints, No other Musculoskeletal: No back pain, No bone/joint pain, No neck pain, No no complaints, No other, No restricted range of motion, No swelling Skin: No bruising, No erythema, No laceration, No no complaints, No other, No pruritis, No rash, No skin lesions Neurologic: No confusion, No dizziness, No focal-weakness, No headache, No no complaints, No other, No seizure, No syncope Lymphatic: No adenopathy, No lymphadema, No no complaints, No other, No tender nodes Psychological: no complaints Immunologic: No immunodeficiency, No no complaints, No other, No pruritis, No rhinitis, No urticaria PMH/Family/Social Past Medical History Medical History: hypertension Past Surgical History Past Surgical Hx: cholecystectomy Social History Alcohol Use: none Smoking Status: Never smoker Drug Use: none Exam/Review of Systems Vital Signs Vitals Vital Signs Date Time Temp Pulse Resp B/P Pulse Ox O2 Delivery O2 Flow Rate FiO2 10/26/16 08:00 71 10/26/16 08:00 98.0 16 147/77 100 Room Air 10/25/16 15:30 2.0 Intake and Output 10/25/16 10/25/16 10/26/16 15:00 23:00 07:00 Intake Total 0 ml 637.5 ml 2145.5 ml Output Total 550 ml 404 ml 670 ml Balance -550 ml 233.5 ml 1475.5 ml Exam Constitutional: alert, oriented, well developed Psych: nl mood/affect, no complaints Head: atraumatic, normocephalic Eyes: EOMI, PERRL, nl conjunctiva, nl lids, nl sclera ENMT: nl external ears & nose, nl lips & teeth, nl nasal mucosa & septum Neck: non-tender, supple Respiratory: clear to auscultation, normal air movement Cardiovascular: nl pulses, regular rate and rhythm Gastrointestinal: nl liver, spleen, non-tender, soft Musculoskeletal: nl extremities to inspection Extremities: normal pulses Neurological: QUOTATION CLERK II-XII intact, nl mental status, nl speech, nl strength Skin: nl turgor, No rash or lesions Lymph: nl lymph nodes Labs Result Diagram: 10/26/1654510/26/1646 Medications Medications Current Medications Acetaminophen (Tylenol Tab) 650 mg Q4H PRN PO NON-CARDIAC PAIN LEVEL (1-3); Start 10/25/16 at 14:30 Al Hydrox/Mg Hydrox/Simethicone (Mag-Al Plus) 30 ml Q4H PRN PO GASTROINTESTINAL UPSET; Start 10/25/16 at 14:30 Ondansetron HCl (Zofran Inj) 4 mg Q4H PRN IV NAUSEA AND/OR VOMITING; Start at 14:30 Diagnostic Test (Pha) (Accu-Chek) 1 ea 02 XX ; Start 10/26/16 at 02:00 Insulin Glargine (Lantus) 10 unit DAILY@08 SC ; Start 10/26/16 at 08:00; Status Future Hold Aspirin (Aspirin) 81 mg DAILY PO ; Start 10/26/16 at 09:00; Status Future Hold Atorvastatin Calcium (Lipitor) 80 mg HS PO Last administered on 10/25/16t 20:36 ; Admin Dose 80 MG; Start 10/25/16 at 21:00 Miscellaneous Information 1 ea NOTE XX ; Start 10/25/16 at 16:30 Glucose (Glutose) 15 gm Q15M PRN PO DECREASED GLUCOSE; Start 10/25/16 at 16:30 Glucose (Glutose) 22.5 gm Q15M PRN PO DECREASED GLUCOSE; Start 10/25/16 at 16: 30 Dextrose (D50w Syringe) 25 ml Q15M PRN IV DECREASED GLUCOSE; Start 10/25/16 at 16:30 Dextrose (D50w Syringe) 50 ml Q15M PRN IV DECREASED GLUCOSE; Start 10/25/16 at 16:30 Glucagon (Glucagen) 1 mg Q15M PRN IM DECREASED GLUCOSE; Start 10/25/16 at 16:30 Glucose (Glutose) 15 gm Q15M PRN BUCCAL DECREASED GLUCOSE; Start 10/25/16 at 16 :30 CASSIA BENDER MD Oct 26, 2016 18:33
[2016-10-26] MEDS ORDERED: POTASSIUM CHLORIDE 100 ML ONE (18:42)
[2016-10-26] MEDS ORDERED: HYDROCORTISONE 100 MG INJ ONE (18:59)
[2016-10-26] MEDS ORDERED: IOHEXOL 300MG/ML 30 ML BTL ONE (20:15)
[2016-10-26] MEDS ORDERED: ETOMIDATE 20 MG INJ ONE (21:14)
[2016-10-26] MEDS ORDERED: LIDOCAINE 2% (SDV) 5 ML INJ ONE (21:14)
[2016-10-26] MEDS ORDERED: ROCURONIUM 50 MG INJ ONE (21:14)
[2016-10-26] MEDS: DOPamine-D5W 1.6 MG/ML 250 ML IV SCH ×2 (21:30→23:52)
[2016-10-26] MEDS: NITROGLYCERIN 50 MG/D5W (PMX) 250 ML IV SCH (21:30)
[2016-10-26] MEDS: MILRINONE LACTATE 100 ML IV SCH ×2 (21:30→23:53)
[2016-10-26] MEDS: PHENYLephrine 20MG IN 250 ML 250 ML IV SCH (21:30)
[2016-10-26] MEDS ORDERED: SOD CHLORIDE 0.9% 1,000 ML IV SCH (21:49)
[2016-10-26] MEDS ORDERED: DEXTROSE 50% 50 ML SYRINGE IV PRN ×2 (22:00)
[2016-10-26] MEDS: ACCU-CHEK XX SCH ×2 (22:00→23:00)
--- NOTE | 2016-10-26 22:10 | SIPON ---
Date/Time of Note Date/Time of Note DATE: 10/26/16 TIME: 21:58 Operative Report Preoperative Diagnosis CAD Postoperative Diagnosis same Operation/Procedure Performed CABGx4. IABP Surgeon Ebony data entry assistant Antonio Second assist: DON ROSADO Anesthesia: general Estimated blood loss: other Transfusion Required 10 units Specimen none Grafts/Implants none Complications RV failure multiple times with v fib and multiple reinstitution of bypass. clot in R cor graft TOMÁS PECK MD Oct 26, 2016 22:09
[2016-10-26 22:14] LABS: ABNORMAL IP MESSAGE 1; HEMATOCRIT 22.7 % (37.0-47.0); HEMOGLOBIN 7.4 g/dl (12.0-16.0); MEAN CORPUSCULAR HGB CONC 32.6 g/dl (32.0-37.0); MEAN PLATELET VOLUME 10.5 fl (7.4-10.4); NUCLEATED RED BLOOD CELLS% 0.4 /100WBC (0.0-0.0); PLATELET COUNT 110 10^3/UL (140-415); RED BLOOD COUNT 2.39 10^6/ul (4.20-5.40); RED CELL DISTRIBUTION WIDTH 14.7 % (11.5-14.5); WHITE BLOOD COUNT 10.6 10^3/ul (4.8-10.8)
[2016-10-26 22:22] LABS: AADO2 Arterial 566.1 mmHg (7.0-24.0); Arterial Base Excess -20.3 mmol/L (-3.0-3); Arterial COHb 0.2 % (0.0-3.0); Arterial Fraction of Oxyhgb 93.5 % (93.0-99.0); Arterial HCO3 9.5 mmol/L (22.0-26.0); Arterial MetHb 0.9 % (0.0-1.5); Arterial Total Hemglobin 7.9 g/dl (12.0-18.0); MODE VENT - AC; MetHgb Mixed Venous 0.9 %; Mixed Venous Base Excess -20.3 mmol/L; Mixed Venous COHb 0.2 %; Mixed Venous Fraction OxyHgb 93.5 %; Mixed Venous Oxygen Sat 94.5 mmHG (65.0-75.0); Mixed Venous Total Hemglobin 7.9 g/dl
[2016-10-26] MEDS ORDERED: NA BICARBONATE 8.4% 50 ML SYG IV STA (22:24)
[2016-10-26] MEDS ORDERED: NA BICARBONATE 8.4% 50 ML SYG IV ONE ×2 (22:30→23:30)
[2016-10-26] MEDS ORDERED: CA CHLORIDE 10% 10 ML SYRINGE IV ONE (22:30)
--- NOTE | 2016-10-26 22:33 | RADRPT ---
AMENDMENT: 10/26/2016 11:29:16 PM Nahomi Jansne M.D Additional clinical history is that there is a missing needle on the needle count. There are sternal wires and there are epicardial pacing wires. There are cholecystectomy clips in th e right upper quadrant. Negative for evidence of a retained radiopaque foreign body. Findings were discussed with Jean Marie Burgos RN by Dr. Nahomi Jansen on October 26, 2016 at 11:25 p.m.. PROCEDURE: Portable chest x-ray. CLINICAL INDICATION: 81 years of age, female. Status post CABG. TECHNIQUE: Portable AP view of the chest. COMPARISON: Chest x-ray October 25, 2016 FINDINGS: Endotracheal tube is situated 2.2 cm from the sharmila. There is a right internal jugular [place]-Moises ca theter with tip over the right ventricular outflow tract. There is an intra-aortic balloon pump with the tip at the superior aortic knob. Recommend withdrawin g the pump 2 - 3 cm into the proximal descending thoracic aorta. There is a left chest tube that is curved in the left mid and lower hemithorax. Atherosclerotic calcification thoracic aorta. Normal heart size. Calcification of mitral valve annul us. Pulmonary vessels are prominent and indistinct in keeping with pulmonary venous congestion and mild interstitial edema. Mild left lung base atelectasis. Negative for pleural effusion or pneumothorax. Bones are osteopenic. Old healed fracture deformity proximal left humerus. Multilevel degenerative c hanges in spine. IMPRESSION: Intra-aortic balloon pump is situated high at the superior aortic knob. Recommend withdrawing the pu mp 2-3 cm into the proximal descending thoracic aorta. Lines and tubes as described. Pulmonary venous congestion and mild interstitial edema. Critical results position of intra-aortic balloon pump were discussed with Dr. Beck by Dr. Grey Jansen on October 26, 2016 at 10:30 p.m.. RPTAT: HCTS Parag Jansen Physician Date Time Electronically viewed and signed by Parag Jansen Physician on 10/26/2016 23:30 CS/
[2016-10-26 22:36] LABS: PT RATIO 3.5
[2016-10-26 22:42] LABS: CALCIUM 12.3 mg/dl (8.4-10.2); CREATININE 0.96 mg/dl (0.44-1.00); MAGNESIUM 3.5 mg/dl (1.7-2.5); POTASSIUM 4.3 mmol/L (3.5-5.1)
[2016-10-26 22:47] LABS: POSITIVE DIFF @See below
--- NOTE | 2016-10-26 22:56 | RADRPT ---
PROCEDURE: XR Chest. CLINICAL INDICATION: Postoperative evaluation. Intubation TECHNIQUE: Portable AP supine view of the chest was obtained. COMPARISON: 10/26/2016 at 20:58 FINDINGS: The cardiomediastinal silhouette is within normal limits. Distal tip of the endotracheal tube proje cts 2.4 cm above the sharmila in satisfactory position. The right internal jugular approach [place]-Moises catheter is stable in position the distal tip pointing superiorly over the main pulmonary outflow tr act. The distal tip of the nasogastric line is been placed in the interval is pointing inferiorly to the left in the region of the mid to distal stomach. Left-sided chest tube and mediastinal drainage catheters remain in satisfactory positions. The metallic tip of the intra-aortic balloon pump again projects at the calcified aortic arch. Perihilar edema consistent with pulmonary vascular congesti on is not significantly changed, mild left basilar subsegmental atelectasis is also stable. There is no obvious pneumothorax on this supine exposure. Sternotomy wires are again demonstrated with diff use demineralization likely reflective of osteoporosis. Clips in the right upper quadrant of the abdomen are incidental for prior cholecystectomy. RPTAT:HJJR IMPRESSION: 1. Distal tip of the new nasogastric tube is within the stomach in good position for usage. 2. Slight interval increase in perihilar edema compared to earlier the same day. 3. Endotracheal tube, left-sided chest tube, mediastinal drainage catheter, [place]-Moises catheter and intra-aortic balloon pump have not changed in radiographic positions. Physician Corrie Date Time Electronically viewed and signed by Physician Corrie on 10/26/2016 22:56 /
[2016-10-26 23:02] LABS: AADO2 Arterial 555.7 mmHg (7.0-24.0); Arterial Base Excess -14.5 mmol/L (-3.0-3); Arterial COHb 0.2 % (0.0-3.0); Arterial Fraction of Oxyhgb 95.2 % (93.0-99.0); Arterial HCO3 13.7 mmol/L (22.0-26.0); Arterial MetHb 0.7 % (0.0-1.5); MODE VENT - AC
[2016-10-26 23:21] LABS: INR 4.68; PROTIME 44.9 Sec (12.2-14.2)
[2016-10-26 23:23] LABS: PARTIAL THROMBOPLASTIN TIME > 180.0 Sec (25.0-35.0)
[2016-10-26] MEDS: DEXTROSE 5% 1,000 ML IV SCH (23:40)
[2016-10-26 23:46] LABS: BASOPHILS % 0.1 % (0.0-2.0); LYMPHOCYTES # 1.6 10^3/ul (0.8-2.9); LYMPHOCYTES % 14.8 % (15.0-51.0); MONOCYTE # 0.7 10^3/ul (0.3-0.9); MONOCYTES % 6.1 % (0.0-11.0)
--- NOTE | 2016-10-26 23:50 | RADRPT ---
PROCEDURE: Retrograde cystogram CLINICAL INDICATION: Intraoperative imaging for cystoscopy and retrograde cystogram. TECHNIQUE: Intraoperative cystoscopy and retrograde cystogram was performed. Fluoroscopy was provi ded. Spot images were obtained. COMPARISON: None available FINDINGS: Spot images were obtained during the performance a retrograde cystogram by Dr. Beck. No radiologist was present during the procedure. No diagnosis was made from these images. Refer to the dedicated report by the attending urologist for additional details. 4.4 minutes fluoroscopic time was utilized. 9 fluoroscopic images were obtained. IMPRESSION: 1. Intraoperative images acquired during performance of cystoscopy and retrograde cystogram. RPTAT: II .Javid Hernandes MD, Date Time Electronically viewed and signed by .Javid Hernandes MD, on 10/26/2016 23:49 .Aydin
[2016-10-26 23:53] LABS: EOSINOPHILS % 0.4 % (0.0-7.0); NEUTROPHIL # 7.1 10^3/ul (1.6-7.5); NEUTROPHILS % 67.2 % (39.0-77.0)
[2016-10-27] VITALS (83 sets, daily range): BP systolic 32–165; BP diastolic 19–82; PULSE 0–122; RESP 16–19; TEMP 94.6–99.1
[2016-10-27] MEDS ORDERED: NA BICARBONATE 8.4% 50 ML SYG ONE
[2016-10-27] MEDS ORDERED: CA CHLORIDE 10% 10 ML SYRINGE ONE
[2016-10-27] MEDS ORDERED: EPINEPHrine 0.1 MG/ML SYG ONE
[2016-10-27 00:03] LABS: AADO2 Arterial 594.2 mmHg (7.0-24.0); Arterial Base Excess -14.6 mmol/L (-3.0-3); Arterial COHb 0.1 % (0.0-3.0); Arterial Fraction of Oxyhgb 93.9 % (93.0-99.0); Arterial HCO3 11.5 mmol/L (22.0-26.0); Arterial MetHb 0.5 % (0.0-1.5); Arterial Total Hemglobin 8.9 g/dl (12.0-18.0); MODE VENT - AC
[2016-10-27 00:05] LABS: MODE VENT - AC; MetHgb Venous 0.9 %; Sample Type BLMV; Venous COHb 0.2 %; Venous Fraction OxyHgb 63.3 %; Venous Total Hemglobin 8.3 g/dl
[2016-10-27] MEDS ORDERED: NA BICARBONATE 8.4% 50 ML SYG IV STA ×3 (00:14→11:21)
[2016-10-27] MEDS: EPINEPHrine 4 MG in DEXTROSE 5% 246 ML IV SCH ×3 (00:24→15:10)
[2016-10-27 01:09] LABS: AADO2 Arterial 601.4 mmHg (7.0-24.0); Arterial Base Excess -9.9 mmol/L (-3.0-3); Arterial COHb 0.1 % (0.0-3.0); Arterial Fraction of Oxyhgb 93.8 % (93.0-99.0); Arterial HCO3 15.2 mmol/L (22.0-26.0); Arterial MetHb 0.3 % (0.0-1.5); Arterial Total Hemglobin 10.2 g/dl (12.0-18.0); MODE VENT - AC
[2016-10-27 03:34] LABS: MODE VENT - AC
[2016-10-27] MEDS ORDERED: NA BICARBONATE 8.4% 50 ML SYG IV ONE ×5 (03:50→16:00)
[2016-10-27 03:51] LABS: Arterial Base Excess -18.3 mmol/L (-3.0-3); Arterial COHb 0.2 % (0.0-3.0); Arterial Fraction of Oxyhgb 89.5 % (93.0-99.0); Arterial HCO3 8.6 mmol/L (22.0-26.0); Arterial MetHb 0.4 % (0.0-1.5); Arterial Total Hemglobin 12.3 g/dl (12.0-18.0)
[2016-10-27] MEDS: NITROGLYCERIN 50 MG/D5W (PMX) 250 ML IV SCH (03:55)
[2016-10-27] MEDS: PHENYLephrine 20MG IN 250 ML 250 ML IV SCH (04:24)
[2016-10-27 04:35] LABS: ABNORMAL IP MESSAGE 1; HEMATOCRIT 34.6 % (37.0-47.0); HEMOGLOBIN 11.2 g/dl (12.0-16.0); MEAN CORPUSCULAR HEMOGLOBIN 30.9 pg (29.0-33.0); MEAN CORPUSCULAR HGB CONC 32.4 g/dl (32.0-37.0); MEAN CORPUSCULAR VOLUME 95.3 fl (82.0-101.0); MEAN PLATELET VOLUME 10.7 fl (7.4-10.4); NUCLEATED RED BLOOD CELLS% 0.6 /100WBC (0.0-0.0); PLATELET COUNT 84 10^3/UL (140-415); RED BLOOD COUNT 3.63 10^6/ul (4.20-5.40); RED CELL DISTRIBUTION WIDTH 16.2 % (11.5-14.5); WHITE BLOOD COUNT 8.3 10^3/ul (4.8-10.8)
[2016-10-27 04:39] LABS: INR 4.51; PROTIME 43.6 Sec (12.2-14.2); PT RATIO 3.4
[2016-10-27 04:59] LABS: POSITIVE DIFF @See below
[2016-10-27 05:18] LABS: PARTIAL THROMBOPLASTIN TIME > 180.0 Sec (25.0-35.0)
[2016-10-27 06:28] LABS: AADO2 Arterial 626.9 mmHg (7.0-24.0); Arterial Base Excess -12.3 mmol/L (-3.0-3); Arterial COHb 0.2 % (0.0-3.0); Arterial Fraction of Oxyhgb 89.6 % (93.0-99.0); Arterial HCO3 12.7 mmol/L (22.0-26.0); Arterial MetHb 0.6 % (0.0-1.5); Arterial Total Hemglobin 12.6 g/dl (12.0-18.0); MODE VENT - AC
[2016-10-27] MEDS: ACCU-CHEK XX SCH ×11 (07:00→16:54)
--- NOTE | 2016-10-27 07:16 | PN ---
Date/Time of Note Date/Time of Note DATE: 10/27/16 TIME: 07:11 Assessment/Plan VTE Prophylaxis VTE Prophylaxis Intervention: other Lines/Catheters IV Catheter Type (from Nrs): [place] Moises Urinary Cath still in place: Yes Reason Cath still needed: other (indicate) (critical care) Assessment/Plan Assessment/Plan Status about the same. Pupils fixed and dilated. Most likely brain . Still acidotic. UO lo and dark. crit 30 .crit34. On IABP. Circulation to leg OK. [place] grim primarily because of neuro status but likely to have severe cardiac dysfunction if survives and may need dilaysis. Discussed with daughter about no code status. For now continue with bicarb drip and frequent ABG and adjustment of acid base status. Exam/Review of Systems Vital Signs Vitals Vital Signs Date Time Temp Pulse Resp B/P Pulse Ox O2 Delivery O2 Flow Rate FiO2 10/27/16 07:00 98.7 108 18 109/30 96 10/27/16 05:10 100 10/26/16 08:00 Room Air 10/25/16 15:30 2.0 Intake and Output 10/26/16 10/26/16 10/27/16 15:00 23:00 07:00 Intake Total 8837.149 ml 2124.888 ml Output Total 140 ml 1758 ml 1133 ml Balance -140 ml 7079.149 ml 991.888 ml Results Result Diagram: 10/27/16 0355 10/26/16 2121 Results 24 hrs Laboratory Tests Test 10/26/16 08:07 10/26/16 21:21 10/26/16 22:00 10/26/16 22:15 Bedside Glucose 104 120 White Blood Count 10.6 # Red Blood Count 2.39 #L Hemoglobin 7.4 #L Hematocrit 22.7 #L Mean Corpuscular Volume 95.0 Mean Corpuscular Hemoglobin 31.0 Mean Corpuscular Hemoglobin Concent 32.6 Red Cell Distribution Width 14.7 H Platelet Count 110 #L Mean Platelet Volume 10.5 H Neutrophils % 67.2 Lymphocytes % 14.8 L Monocytes % 6.1 Eosinophils % 0.4 Basophils % 0.1 Nucleated Red Blood Cells % 0.4 H Neutrophils # 7.1 Lymphocytes # 1.6 Monocytes # 0.7 Eosinophils # 0.0 Basophils # 0.0 Nucleated Red Blood Cells # 0.0 Prothrombin Time 44.9 #H Prothrombin Time Ratio 3.5 INR International Normalized Ratio 4.68 Activated Partial Thromboplast Time > 180.0 *H Sodium Level 151 H Potassium Level 4.3 Chloride Level 109 Carbon Dioxide Level 13 #L Anion Gap 33 #H Blood Urea Nitrogen 12 # Creatinine 0.96 Glucose Level 159 Calcium Level 12.3 #H Magnesium Level 3.5 H Blood Gas Specimen Source BLMV Blood arterial Arterial Blood Date Drawn 10/26/2016 10:20:01 PM 10/26/2016 10:10:05 PM Arterial Blood Gas Puncture Site VENOUS LINE A-Line Tomas Test N/A N/A Venous Blood pO2 (Temp Corrected) 45.5 H Venous Blood Oxygen Saturation 64.0 Venous Blood Total Hemoglobin 8.3 Venous Blood Oxyhemoglobin 63.3 Venous Blood Methemoglobin 0.9 Carboxyhemoglobin 0.2 Blood Gas Temperature 37.0 37.0 Blood Gas Respiration Rate 10.0 10.0 Blood Gas Actual Respiration Rate 10 10 Blood Gas Modality VENT - AC VENT - AC FiO2 100.0 100.0 Blood Gas Tidal Volume 500.0 500.0 Blood Gas Low PEEP Setting 5.0 5.0 Blood Gas Notified Whom TL BOOTHE Blood Gas Notified Time 10/26/2016 10:25:09 PM 10/26/2016 10:21:56 PM Arterial Blood pH (Temp corrected) 7.005 *L Arterial Blood pCO2 (Temp correct) 38.8 Arterial Blood pO2 (Temp corrected) 108.1 H Arterial Blood HCO3 9.5 *L Arterial Blood Base Excess -20.3 L Arterial Blood Oxygen Saturation 94.5 L Arterial Blood Carboxyhemoglobin 0.2 Arterial Blood Methemoglobin 0.9 Mixed Venous Blood pH 7.005 L Mixed Venous Blood PCO2 38.8 L Mixed Venous Blood PO2 108.1 H Mixed Venous Blood HCO3 9.5 L Mixed Venous Blood Base Excess -20.3 Mixed Venous Blood O2 Saturation 94.5 H Mixed Venous Blood Total Hemoglobin 7.9 Mixed Venous Blood Oxyhemoglobin 93.5 Mixed Venous Bld Carboxyhemoglobin 0.2 Mixed Venous Blood Methemoglobin 0.9 Blood Gas A-a O2 Differential 566.1 Oxyhemoglobin Percent 93.5 Total Hemoglobin 7.9 L Blood Gas Critical Value Read Back DCRUZ RN Test 10/26/16 22:45 9/21/17 23:15 10/27/16 00:22 10/27/16 00:45 Blood Gas Specimen Source Blood arterial Blood arterial Blood arterial Arterial Blood Date Drawn 10/26/2016 10:50:06 PM 10/26/2016 11:51:14 PM 10/27/2016 12:50:00 AM Arterial Blood pH (Temp corrected) 7.126 *L 7.234 *L 7.311 L Arterial Blood pCO2 (Temp correct) 42.5 27.9 L 30.8 L Arterial Blood pO2 (Temp corrected) 114.8 H 90.9 H 80.8 Arterial Blood HCO3 13.7 L 11.5 L 15.2 L Arterial Blood Base Excess -14.5 L -14.6 L -9.9 L Arterial Blood Oxygen Saturation 96.1 94.5 L 94.2 L Tomas Test N/A N/A N/A Arterial Blood Gas Puncture Site A-Line A-Line A-Line Arterial Blood Carboxyhemoglobin 0.2 0.1 0.1 Arterial Blood Methemoglobin 0.7 0.5 0.3 Blood Gas A-a O2 Differential 555.7 H 594.2 H 601.4 H Oxyhemoglobin Percent 95.2 93.9 93.8 Total Hemoglobin 8.0 L 8.9 L 10.2 L Blood Gas Temperature 37.0 37.0 37.0 Blood Gas Respiration Rate 10.0 18.0 18.0 Blood Gas Actual Respiration Rate 10 18 18 Blood Gas Modality VENT - AC VENT - AC VENT - AC FiO2 100.0 100.0 100.0 Blood Gas Tidal Volume 500.0 500.0 500.0 Blood Gas Low PEEP Setting 5.0 5.0 5.0 Blood Gas Critical Value Read Back Tana SARGENT RN Blood Gas Notified Whom UP MA UP Blood Gas Notified Time 10/26/2016 11:01:34 PM 10/27/2016 12:02:58 AM 10/27/2016 1:08:00 AM Bedside Glucose 133 Test 10/27/16 03:10 10/27/16 03:23 10/27/16 03:55 10/27/16 04:01 Bedside Glucose 273 H 296 H Blood Gas Specimen Source Blood arterial Arterial Blood Date Drawn 10/27/2016 3:40:00 AM Arterial Blood pH (Temp corrected) 7.165 *L Arterial Blood pCO2 (Temp correct) 24.4 L Arterial Blood pO2 (Temp corrected) 65.6 L Arterial Blood HCO3 8.6 *L Arterial Blood Base Excess -18.3 L Arterial Blood Oxygen Saturation 90.0 L Tomas Test N/A Arterial Blood Gas Puncture Site A-Line Arterial Blood Carboxyhemoglobin 0.2 Arterial Blood Methemoglobin 0.4 Blood Gas A-a O2 Differential 623.0 H Oxyhemoglobin Percent 89.5 L Total Hemoglobin 12.3 Blood Gas Temperature 37.0 Blood Gas Respiration Rate 18.0 Blood Gas Actual Respiration Rate 18 Blood Gas Modality VENT - AC FiO2 100.0 Blood Gas Tidal Volume 500.0 Blood Gas Low PEEP Setting 5.0 Blood Gas Critical Value Read Back T MARITZA RN Blood Gas Notified Whom Tana [employer] CHASSIS Blood Gas Notified Time 10/27/2016 3:50:00 AM White Blood Count 8.3 # Red Blood Count 3.63 #L Hemoglobin 11.2 #L Hematocrit 34.6 #L Mean Corpuscular Volume 95.3 Mean Corpuscular Hemoglobin 30.9 Mean Corpuscular Hemoglobin Concent 32.4 Red Cell Distribution Width 16.2 H Platelet Count 84 #L Mean Platelet Volume 10.7 H Neutrophils % Lymphocytes % Monocytes % Eosinophils % Basophils % Nucleated Red Blood Cells % 0.6 H Neutrophils # Lymphocytes # Monocytes # Eosinophils # Basophils # Nucleated Red Blood Cells # Prothrombin Time 43.6 H Prothrombin Time Ratio 3.4 INR International Normalized Ratio 4.51 Activated Partial Thromboplast Time > 180.0 *H Test 10/27/16 04:45 10/27/16 05:20 10/27/16 05:36 10/27/16 05:54 Blood Gas Specimen Source Blood arterial Arterial Blood Date Drawn 10/27/2016 6:20:14 AM Arterial Blood pH (Temp corrected) 7.289 *L Arterial Blood pCO2 (Temp correct) 27.1 L Arterial Blood pO2 (Temp corrected) 59.0 L Arterial Blood HCO3 12.7 L Arterial Blood Base Excess -12.3 L Arterial Blood Oxygen Saturation 90.3 L Tomas Test N/A Arterial Blood Gas Puncture Site A-Line Arterial Blood Carboxyhemoglobin 0.2 Arterial Blood Methemoglobin 0.6 Blood Gas A-a O2 Differential 626.9 H Oxyhemoglobin Percent 89.6 L Total Hemoglobin 12.6 Blood Gas Temperature 37.0 Blood Gas Respiration Rate 18.0 Blood Gas Actual Respiration Rate 18 Blood Gas Modality VENT - AC FiO2 100.0 Blood Gas Tidal Volume 500.0 Blood Gas Low PEEP Setting 5.0 Blood Gas Critical Value Read Back DCRUZ RN Blood Gas Notified Whom MA Blood Gas Notified Time 10/27/2016 6:27:57 AM Bedside Glucose 304 H 288 H Lab Scanned Report BLOOD TRANSFUSION Medications Medications Current Medications Acetaminophen (Tylenol Tab) 650 mg Q4H PRN PO NON-CARDIAC PAIN LEVEL (1-3); Start 10/25/16 at 14:30 Al Hydrox/Mg Hydrox/Simethicone (Mag-Al Plus) 30 ml Q4H PRN PO GASTROINTESTINAL UPSET; Start 10/25/16 at 14:30 Ondansetron HCl (Zofran Inj) 4 mg Q4H PRN IV NAUSEA AND/OR VOMITING; Start at 14:30 Aspirin (Aspirin) 81 mg DAILY PO ; Start 10/26/16 at 09:00; Status Future Hold Atorvastatin Calcium (Lipitor) 80 mg HS PO Last administered on 10/25/16t 20:36 ; Admin Dose 80 MG; Start 10/25/16 at 21:00 Miscellaneous Information 1 ea NOTE XX ; Start 10/25/16 at 16:30 Glucose (Glutose) 15 gm Q15M PRN PO DECREASED GLUCOSE; Start 10/25/16 at 16:30 Glucose (Glutose) 22.5 gm Q15M PRN PO DECREASED GLUCOSE; Start 10/25/16 at 16: 30 Dextrose (D50w Syringe) 25 ml Q15M PRN IV DECREASED GLUCOSE; Start 10/25/16 at 16:30 Dextrose (D50w Syringe) 50 ml Q15M PRN IV DECREASED GLUCOSE; Start 10/25/16 at 16:30 Glucagon (Glucagen) 1 mg Q15M PRN IM DECREASED GLUCOSE; Start 10/25/16 at 16:30 Glucose (Glutose) 15 gm Q15M PRN BUCCAL DECREASED GLUCOSE; Start 10/25/16 at 16 :30 Diagnostic Test (Pha) (Accu-Chek) 1 ea Q1H XX ; Start 10/26/16 at 22:00 Dextrose (D50w Syringe) 25 ml Q15M PRN IV Till BS 80 mg/dL or above x2; Start 10/26/16 at 22:00 Dextrose 50 ml 50 ml Q15M PRN IV Till BS 80 mg/dL or above x2; Start 10/26/16 at 22:00 Sodium Chloride 1,000 ml @ 10 mls/hr Q24H IV ; Start 10/26/16 at 21:49 Milrinone Lactate 100 ml @ 7.313 mls/ hr TITRATE IV Last administered on 23:53; Admin Dose 7.5 MLS/HR; Start 10/26/16 at 22:00 Dextrose (D5W) 1,000 ml @ 100 mls/hr Q10H IV Last administered on 10/26/16 23 :40; Admin Dose 100 MLS/HR; Start 10/26/16 at 23:30 TOMÁS PECK MD Oct 27, 2016 07:16
[2016-10-27 07:49] LABS: ANISOCYTOSIS 2+ (0-0); BURR CELLS 1+ (0-0); EOSINOPHILS % (M) 1 % (0-7); METAMYELOCYTES %M 1 % (0-0); MICROCYTOSIS 2+ (0-0); MONOCYTES % (M) 4 % (0-11); MYELOCYTES % (M) 4 % (0-0); PLATELET ESTIMATE DECREASED; POIKILOCYTOSIS 3+ (0-0); POLYCHROMASIA 1+ (0-0)
[2016-10-27] MEDS ORDERED: NORepinephrine 32 MG in DEXTROSE 5% 218 ML IV SCH (08:00)
[2016-10-27] MEDS ORDERED: DOPamine 1,600 MG in DEXTROSE 5% 210 ML IV SCH (08:00)
[2016-10-27 08:47] LABS: AADO2 Arterial 631.5 mmHg (7.0-24.0); Arterial Base Excess -12.2 mmol/L (-3.0-3); Arterial COHb 0.3 % (0.0-3.0); Arterial Fraction of Oxyhgb 88.8 % (93.0-99.0); Arterial HCO3 12.3 mmol/L (22.0-26.0); Arterial MetHb 0.5 % (0.0-1.5); Arterial Total Hemglobin 13.2 g/dl (12.0-18.0); MODE VENT - AC
[2016-10-27 09:21] LABS: CALCIUM 11.4 mg/dl (8.4-10.2); CREATININE 1.45 mg/dl (0.44-1.00)
--- NOTE | 2016-10-27 09:42 | OPR ---
DATE OF OPERATION: 10/27/2016 PREOPERATIVE DIAGNOSIS: Coronary artery disease. POSTOPERATIVE DIAGNOSIS: Coronary artery disease. TITLE OF OPERATION: 1. Coronary artery bypass grafting x4 as the left internal mammary artery to the endarterectomized left anterior descending, graft 2 and 3 sequential graft from the diagonal to the obtuse marginal, graft number 4 single vein graft to the posterior descending artery. 2. Multiple episodes of ventricular fibrillation with reinstitution of cardiopulmonary bypass, 1 episode requiring thrombectomy in the right coronary vein graft. SURGEON: Tito Beck MD ENROLLMENT MANAGEMENT MANAGER: Ariel Suarez MD SECOND ENROLLMENT MANAGEMENT MANAGER: HOANG Lozoya OPERATIVE INDICATIONS: This is an 81-year-old female, who developed chest pain recently. She had a strong family history of heart disease. This led to cardiac catheterization. She had an os lesion of the LAD that appeared to be about 90-plus percent. On 1 shot, there appeared to be some narrowing, perhaps in the range of 50 to 60 percent, of the circumflex trunk. There was a diagonal vessel with a 70 percent to 80 percent lesion. The mid right coronary had perhaps a 50 percent lesion. Ventricular function was fairly well preserved. Revascularization was felt warranted. OPERATIVE FINDINGS AT SURGERY: The LAD was totally intramyocardial, except for its distal 1/3. This portion was opened and found to be a relatively small vessel of 1.25 mm and diffusely atherosclerotic. Grafting was difficult due to the delamination tendency of this portion of the vessel, and it was necessary to endarterectomize it in order to adequately fashion the graft here. Following endarterectomy, there was a 1.5 proximal probe passed and 1.25 distally. The diagonal was 1.25 mm. The obtuse marginal was a 1.75 mm vessel. The PDA was a 1.25 mm vessel. Flows in the grafts were 34 cc in the diagonal obtuse marginal, 31 to 74 cc in the right coronary artery, and 17 cc in the mammary to the LAD. The cross clamp time was 60 minutes. The total cardiopulmonary bypass time was 194 minutes, broken down into 81 minutes for the first cardiopulmonary bypass, 68 minutes for the second and 45 minutes for the third episode. OPERATIVE PROCEDURE: With the patient supine under satisfactory level of general endotracheal anesthesia with appropriate monitoring lines in place, the patient was prepped from chin to toe with Betadine soap and paint and sterilely draped. Standard midline median sternotomy incision was made. Left internal mammary artery was taken down with cautery and Ligaclips. The left pleural space was widely entered simultaneously. Greater saphenous vein was harvested from the right leg using the Origin basilar dissection system. Patient was then given 2 mg/kg of heparin and retraction sutures placed in the lateral pericardium. The LAD was encircled with tape. A stabilizer was placed. Patient was given 2 mg/kg of heparin. The vessel was opened and a shunt placed within and a vein graft anastomosed to the LAD with running 7-0 Prolene. It was noted that there was a distal disruption of the vessel where a plaque was and a leak at this point past the anastomosis. I was not able to repair this without endarterectomizing the vessel. At this point, it was felt that completion of the surgery would be more accurately done on cardiopulmonary bypass as proximal control was now impaired due to the intramyocardial portion of the vessel. Epiaortic scan of the ascending aorta showed no atherosclerosis in the cannulation site. There was some plaque distally, however. Patient was then cannulated in a standard fashion using a single atrial return cannula. A retrograde cardioplegia cannula was placed as well. Patient was then placed on full cardiopulmonary bypass and allowed to drift. A cross clamp was applied, and the cold blood cardioplegia solution was infused retrograde in the coronary sinus. Topical lysine was applied to the surface of the myocardium. With an arrested heart, the previously placed vein graft was refashioned to length, and the longer arteriotomy of the LAD and endarterectomized segment was then used to anastomose the vein graft with running 7-0 Prolene. Measured flow at this point was as high as 30 cc with an arrested heart. We then turned our attention to the obtuse marginal. Vessel was opened. The vein graft was done end-to-side with running 7-0 Prolene. This graft was then brought up and anastomosed [id number] to the diagonal vessel with running 7-0 Prolene. We then turned our attention to the right. The distal right was atherosclerotic to palpation, and therefore our attention was turned to grafting to the PDA, which was opened. It was a 1.25-mm vessel. A vein graft was anastomosed end-to-side with running 7-0 Prolene. A warm hyperkalemic cardioplegic solution was then infused retrograde in the coronary sinus followed by normokalemic cardioplegic solution. The heart began to beat. Cross clamp was then removed. Heart was fibrillated and converted to a beating rhythm within 1 second. Partial clamp was placed on the ascending aorta in the fashion. Most inferiorly was a graft to the diagonal OM above graft to the PDA. These were done with running 5-0 Prolene. Patient was then rewarmed with normothermia and weaned from cardiopulmonary bypass without the need for inotropic support. Flows were measured as noted above in the grafts. Heart function looked excellent. Protamine was administered and all pump lines removed. A size 36 anterior mediastinal chest tube was placed. Two atrial pacing wires and a single right biventricular pacing lead were placed. The sternum was then closed with number 6 stainless steel cable in a [id number] fashion, 0 Vicryl in linea alba and 5-0 subcuticular Monocryl in the skin. As we were closing towards the end, it was noted on echocardiography that the right ventricle seemed to be dilating. Left ventricular function seemed to be excellent, however. The pulmonary artery pressure remained low in the 20s and 30s, but RV function seemed to be progressively deteriorating, and then the heart fibrillated. CPR was started. The wound was reopened. Pump was re-primed. Patient was hastily re-cannulated and placed back on cardiopulmonary bypass. Flows were measured in the grafts and noted to be present in the LAD and obtuse marginal, but no flow was noted in the right graft. Distal incision was made in the graft, and no flow was coming down. I was able to milk clot out of the proximal graft and then marked the forward flow came through. We closed the venotomy site and then measured the flow in the grafts, and they were excellent, up to 75 cc/minute. Right ventricular function seemed to return. Patient's ventricle was allowed to recover and then weaned from cardiopulmonary bypass. Again, excellent function seemed to be present. Patient was decannulated. We were getting prepared to close again, and once again the right ventricle started to dilate, and the patient fibrillated. Massage was started, and heart was defibrillated. We got the patient out of ventricular fibrillation and measured the flow in the right graft again. It still seemed to be excellent at this point. Right ventricular function seemed to gradually improve, and we continued to watch for a while. The patient seemed to be recovering satisfactorily. We were then getting ready to close once again, and the right ventricle started to dilate again leading with normal left ventricular function by echo and low pressures on the pulmonary artery side, and yet the RV seemed to be without circulation; however, flows were measured in the graft again and noted to be excellent, but once again the heart fibrillated. It was necessary to institute CPR, and this time we had to hastily re- cannulate again in the right atrium and aorta and re-institute cardiopulmonary bypass. Once again, once we were on pump, measured flows, they were again excellent in the right. They now seemed to be somewhat diminished in the mammary and the left graft, although LV function continued to be satisfactory there. We continued to watch and support the patient for an extended period. At this time, we wondered whether or not protamine may in some fashion be contributing to the RV dysfunction and decided not to give protamine. We waited at least an hour, and patient seemed to remain stable. We were able to decannulate. As noted, the 2 atrial pacing wires and a right ventricular pacing wire were placed. A size 36 anterior mediastinal chest tube and a 28 right angle in the left pleural space were placed. This time, the patient remained relatively stable. We proceeded to close the chest with number 8 stainless steel cable in a [id number] fashion, 0 Vicryl in the linea alba and subcutaneous and a 4-0 subcuticular Monocryl in the skin. During this time, we noted that now we were beginning to observe global left ventricular dysfunction. Clearly, the patient had been through multiple episodes of CPR and massage and hypotension. We therefore elected to place intraaortic balloon. A needle was placed in the right femoral artery and a guidewire. Initially, we could not make the guidewire go up. Attention was turned to the other side. We placed a needle in the guidewire and then dilator and sheath, still could not make the guidewire go up this side. We did a shot with some contrast to 30 cc, half strength, and noted what appeared to be a local perforation of the vessel. We therefore abandoned this left side, returned back to the right side. This time, we used a Glidewire, which more easily slid up into the aorta, then placed a dilator and sheath, removed the guidewire and the dilator. It was necessary to remove the guidewire as it would not fit into the intraaortic balloon, so we were able to pass the intraaortic balloon, and fortunately, it tracked up the aorta into the arch satisfactorily, and counterpulsation was started. It was affixed with silk suture at the skin. Patient remained with a satisfactory rhythm. There was extensive inotropic support with dopamine, epinephrine and milrinone. Cardiac index varied between 1.2 and 1.7. PA pressures remained in the 30 range, but there was global myocardial dysfunction clearly. After institution of the balloon, the patient was then transferred to the intensive care unit in a critical state with guarded chance for recovery due to the multiple intraoperative episodes of ventricular fibrillation and CPR and prolonged support. Dictated By: Tito Beck MD /martin/luzmaria /Document#: [id number]
[2016-10-27] MEDS: DEXTROSE 5% 1,000 ML IV SCH (10:17)
[2016-10-27] MEDS ORDERED: POTASSIUM CHLORIDE 150 ML ONE (10:53)
[2016-10-27 11:10] LABS: Arterial Base Excess -15.1 mmol/L (-3.0-3); Arterial COHb 0.3 % (0.0-3.0); Arterial Fraction of Oxyhgb 86.3 % (93.0-99.0); Arterial HCO3 10.9 mmol/L (22.0-26.0); Arterial MetHb 0.5 % (0.0-1.5); Arterial Total Hemglobin 12.5 g/dl (12.0-18.0); MODE VENT - AC
[2016-10-27] MEDS: PHENYLephrine 160 MG in DEXTROSE 5% 484 ML IV SCH ×2 (11:19→18:38)
[2016-10-27] MEDS: POTASSIUM CHLORIDE 50 ML IVPB SCH ×3 (11:29→14:06)
[2016-10-27] MEDS: INSULIN HUMAN REGULAR 100 UNIT in SOD CHLORIDE 0.9% 99 ML IV SCH ×2 (12:25→16:50)
[2016-10-27] MEDS ORDERED: AMIODARONE 900 MG in DEXTROSE 5% 482 ML IV SCH (12:30)
[2016-10-27] MEDS ORDERED: SODIUM BICARBONATE (IV ADD) 100 MEQ in DEXTROSE 5%-0.45% NACL 900 ML IV SCH (12:30)
--- NOTE | 2016-10-27 13:08 | CONS ---
Date/Time of Note Date/Time of Note DATE: 10/27/16 TIME: 12:48 Assessment/Plan Assessment/Plan Chief Complaint/Hosp Course IMPRESSION: 1. Acute OK-minimally positive troponin. 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 Chest pain-secondary to OK 6. Syncope-in setting of initial acute OK and initial ASHLEY on ECG 7. VFA on Amio iin OR s/p cabg Recc: -ICU monitoring -Wean epi/Pedro as tolerated and maintain on inotropic therapy/dopamine -follow HD closely -ongoing assessment of MS and obtain neurology consultation/palliative care -ongoing discussion with family which I have done at length today with daughter of patient who is primary spokesperson. Also spoke with primary CTS Dr. Beck at length about prolonged case>12 hours and complications and he has also discussed at length with family -Follow volume status closely -Maintain on IABP -Continue heparin Problems: Consultation Date/Type/Reason Admit Date/Time Oct 26, 2016 at 22:31 Initial Consult Date 10/25/16 Type of Consultation: cardiology Reason for Consultation stemi/cardiac arrest Referring Provider: AMNA FUENTES Exam/Review of Systems Vital Signs Vitals Vital Signs Date Time Temp Pulse Resp B/P Pulse Ox O2 Delivery O2 Flow Rate FiO2 10/27/16 11:30 94 18 111/44 93 10/27/16 11:20 100 10/27/16 11:00 98.8 10/26/16 08:00 Room Air 10/25/16 15:30 2.0 Intake and Output 10/26/16 10/26/16 10/27/16 15:00 23:00 07:00 Intake Total 8837.149 ml 2124.888 ml Output Total 140 ml 1758 ml 1133 ml Balance -140 ml 7079.149 ml 991.888 ml Exam Review of Systems: CONSTITUTIONAL: No fevers, chills. PULMONARY: No sob CARDIOVASCULAR: No chest pain/palpitations GASTROINTESTINAL: No nausea/vomiting. GENITOURINARY: No hematuria/dysuria. MUSCULOSKELETAL: No myagias/arthalgias. PSYCHIATRIC: The patient denies depression. NEUROLOGIC: No weakness Constitutional: other (encephalopathic, nonresponsive) Psych: no complaints Head: normocephalic Eyes: other (pupils dilated) ENMT: mucosa pink and moist Neck: jvd (9 cm water), supple Respiratory: other (intubated, uppar airway rhoncherous sounds) Cardiovascular: other (s/p median sternotomy with drains in place), regular rate and rhythm Gastrointestinal: soft Musculoskeletal: muscle tone (normal) Extremities: edema (trace/BIlateral) Neurological: unresponsive Results Result Diagram: 10/27/16 0355 10/27/16 0752 Results 24 hrs Laboratory Tests Test 10/26/16 21:21 10/26/16 22:00 10/26/16 22:15 10/26/16 22:45 White Blood Count 10.6 # Red Blood Count 2.39 #L Hemoglobin 7.4 #L Hematocrit 22.7 #L Mean Corpuscular Volume 95.0 Mean Corpuscular Hemoglobin 31.0 Mean Corpuscular Hemoglobin Concent 32.6 Red Cell Distribution Width 14.7 H Platelet Count 110 #L Mean Platelet Volume 10.5 H Neutrophils % 67.2 Lymphocytes % 14.8 L Monocytes % 6.1 Eosinophils % 0.4 Basophils % 0.1 Nucleated Red Blood Cells % 0.4 H Neutrophils # 7.1 Lymphocytes # 1.6 Monocytes # 0.7 Eosinophils # 0.0 Basophils # 0.0 Nucleated Red Blood Cells # 0.0 Prothrombin Time 44.9 #H Prothrombin Time Ratio 3.5 INR International Normalized Ratio 4.68 Activated Partial Thromboplast Time > 180.0 *H Sodium Level 151 H Potassium Level 4.3 Chloride Level 109 Carbon Dioxide Level 13 #L Anion Gap 33 #H Blood Urea Nitrogen 12 # Creatinine 0.96 Glucose Level 159 Calcium Level 12.3 #H Magnesium Level 3.5 H Blood Gas Specimen Source [facility] Blood arterial Blood arterial Arterial Blood Date Drawn 10/26/2016 10:20:01 PM 10/26/2016 10:10:05 PM 10/26/2016 10:50:06 PM Arterial Blood Gas Puncture Site VENOUS LINE A-Line A-Line Tomas Test N/A N/A N/A Venous Blood pO2 (Temp Corrected) 45.5 H Venous Blood Oxygen Saturation 64.0 Venous Blood Total Hemoglobin 8.3 Venous Blood Oxyhemoglobin 63.3 Venous Blood Methemoglobin 0.9 Carboxyhemoglobin 0.2 Blood Gas Temperature 37.0 37.0 37.0 Blood Gas Respiration Rate 10.0 10.0 10.0 Blood Gas Actual Respiration Rate 10 10 10 Blood Gas Modality VENT - AC VENT - AC VENT - AC FiO2 100.0 100.0 100.0 Blood Gas Tidal Volume 500.0 500.0 500.0 Blood Gas Low PEEP Setting 5.0 5.0 5.0 Blood Gas Notified Whom TL MA UP Blood Gas Notified Time 10/26/2016 10:25:09 PM 10/26/2016 10:21:56 PM 10/26/2016 11:01:34 PM Arterial Blood pH (Temp corrected) 7.005 *L 7.126 *L Arterial Blood pCO2 (Temp correct) 38.8 42.5 Arterial Blood pO2 (Temp corrected) 108.1 H 114.8 H Arterial Blood HCO3 9.5 *L 13.7 L Arterial Blood Base Excess -20.3 L -14.5 L Arterial Blood Oxygen Saturation 94.5 L 96.1 Arterial Blood Carboxyhemoglobin 0.2 0.2 Arterial Blood Methemoglobin 0.9 0.7 Mixed Venous Blood pH 7.005 L Mixed Venous Blood PCO2 38.8 L Mixed Venous Blood PO2 108.1 H Mixed Venous Blood HCO3 9.5 L Mixed Venous Blood Base Excess -20.3 Mixed Venous Blood O2 Saturation 94.5 H Mixed Venous Blood Total Hemoglobin 7.9 Mixed Venous Blood Oxyhemoglobin 93.5 Mixed Venous Bld Carboxyhemoglobin 0.2 Mixed Venous Blood Methemoglobin 0.9 Blood Gas A-a O2 Differential 566.1 555.7 H Oxyhemoglobin Percent 93.5 95.2 Total Hemoglobin 7.9 L 8.0 L Blood Gas Critical Value Read Back KIRBYUZ JOYCELYN JIMENEZ RN Bedside Glucose 120 Test 10/26/16 23:15 10/27/16 00:22 10/27/16 00:45 10/27/16 03:10 Blood Gas Specimen Source Blood arterial Blood arterial Arterial Blood Date Drawn 10/26/2016 11:51:14 PM 10/27/2016 12:50:00 AM Arterial Blood pH (Temp corrected) 7.234 *L 7.311 L Arterial Blood pCO2 (Temp correct) 27.9 L 30.8 L Arterial Blood pO2 (Temp corrected) 90.9 H 80.8 Arterial Blood HCO3 11.5 L 15.2 L Arterial Blood Base Excess -14.6 L -9.9 L Arterial Blood Oxygen Saturation 94.5 L 94.2 L Tomas Test N/A N/A Arterial Blood Gas Puncture Site A-Line A-Line Arterial Blood Carboxyhemoglobin 0.1 0.1 Arterial Blood Methemoglobin 0.5 0.3 Blood Gas A-a O2 Differential 594.2 H 601.4 H Oxyhemoglobin Percent 93.9 93.8 Total Hemoglobin 8.9 L 10.2 L Blood Gas Temperature 37.0 37.0 Blood Gas Respiration Rate 18.0 18.0 Blood Gas Actual Respiration Rate 18 18 Blood Gas Modality VENT - AC VENT - AC FiO2 100.0 100.0 Blood Gas Tidal Volume 500.0 500.0 Blood Gas Low PEEP Setting 5.0 5.0 Blood Gas Critical Value Read Back DCRUZ RN Blood Gas Notified Whom MA UP Blood Gas Notified Time 10/27/2016 12:02:58 AM 10/27/2016 1:08:00 AM Bedside Glucose 133 273 H Test 10/27/16 03:23 10/27/16 03:55 10/27/16 04:01 10/27/16 04:45 Blood Gas Specimen Source Blood arterial Blood arterial Arterial Blood Date Drawn 10/27/2016 3:40:00 AM 10/27/2016 6:20:14 AM Arterial Blood pH (Temp corrected) 7.165 *L 7.289 *L Arterial Blood pCO2 (Temp correct) 24.4 L 27.1 L Arterial Blood pO2 (Temp corrected) 65.6 L 59.0 L Arterial Blood HCO3 8.6 *L 12.7 L Arterial Blood Base Excess -18.3 L -12.3 L Arterial Blood Oxygen Saturation 90.0 L 90.3 L Tomas Test N/A N/A Arterial Blood Gas Puncture Site A-Line A-Line Arterial Blood Carboxyhemoglobin 0.2 0.2 Arterial Blood Methemoglobin 0.4 0.6 Blood Gas A-a O2 Differential 623.0 H 626.9 H Oxyhemoglobin Percent 89.5 L 89.6 L Total Hemoglobin 12.3 12.6 Blood Gas Temperature 37.0 37.0 Blood Gas Respiration Rate 18.0 18.0 Blood Gas Actual Respiration Rate 18 18 Blood Gas Modality VENT - AC VENT - AC FiO2 100.0 100.0 Blood Gas Tidal Volume 500.0 500.0 Blood Gas Low PEEP Setting 5.0 5.0 Blood Gas Critical Value Read Back Alexa SARGENT RN Blood Gas Notified Whom Tana GRIMM RCP, MA Blood Gas Notified Time 10/27/2016 3:50:00 AM 10/27/2016 6:27:57 AM White Blood Count 8.3 # Red Blood Count 3.63 #L Hemoglobin 11.2 #L Hematocrit 34.6 #L Mean Corpuscular Volume 95.3 Mean Corpuscular Hemoglobin 30.9 Mean Corpuscular Hemoglobin Concent 32.4 Red Cell Distribution Width 16.2 H Platelet Count 84 #L Mean Platelet Volume 10.7 H Neutrophils % Segmented Neutrophils % (Manual) 56 Band Neutrophils % (Manual) 25 H Lymphocytes % Lymphocytes % (Manual) 9 L Monocytes % Monocytes % (Manual) 4 Eosinophils % Eosinophils % (Manual) 1 Basophils % Metamyelocytes % (manual) 1 H Myelocytes % (Manual) 4 H Nucleated Red Blood Cells % 0.6 H Neutrophils # Neutrophils # (Manual) 4.8 Band Neutrophils # 2.0 H Absolute Lymphocytes (Manual) 0.7 L Lymphocytes # Monocytes # Absolute Monocytes (Manual) 0.3 Eosinophils # Basophils # Metamyelocytes # 0.0 Myelocytes # 0.3 H Nucleated Red Blood Cells # Platelet Estimate DECREASED Polychromasia 1+ Poikilocytosis 3+ Anisocytosis 2+ Microcytosis 2+ Prothrombin Time 43.6 H Prothrombin Time Ratio 3.4 INR International Normalized Ratio 4.51 Activated Partial Thromboplast Time > 180.0 *H Bedside Glucose 296 H Test 10/27/16 05:20 10/27/16 05:36 10/27/16 05:54 10/27/16 07:13 Bedside Glucose 304 H 288 H 310 H Lab Scanned Report BLOOD TRANSFUSION Test 10/27/16 07:30 10/27/16 07:52 10/27/16 08:28 10/27/16 09:44 Blood Gas Specimen Source Blood arterial Arterial Blood Date Drawn 10/27/2016 8:40:29 AM Arterial Blood pH (Temp corrected) 7.308 L Arterial Blood pCO2 (Temp correct) 25.1 L Arterial Blood pO2 (Temp corrected) 56.4 L Arterial Blood HCO3 12.3 L Arterial Blood Base Excess -12.2 L Arterial Blood Oxygen Saturation 89.5 L Tomas Test N/A Arterial Blood Gas Puncture Site A-Line Arterial Blood Carboxyhemoglobin 0.3 Arterial Blood Methemoglobin 0.5 Blood Gas A-a O2 Differential 631.5 H Oxyhemoglobin Percent 88.8 L Total Hemoglobin 13.2 Blood Gas Temperature 37.0 Blood Gas Respiration Rate 18.0 Blood Gas Actual Respiration Rate 18 Blood Gas Modality VENT - AC FiO2 100.0 Blood Gas Tidal Volume 500.0 Blood Gas Low PEEP Setting 5.0 Blood Gas Notified Whom CW Blood Gas Notified Time 10/27/2016 8:47:36 AM Sodium Level 151 H Potassium Level 3.0 L Chloride Level 97 # Carbon Dioxide Level 18 L Anion Gap 39 H Blood Urea Nitrogen 15 Creatinine 1.45 H Glucose Level 292 #H Calcium Level 11.4 H Magnesium Level 3.0 H Bedside Glucose 242 H 235 H Test 10/27/16 10:07 10/27/16 10:13 10/27/16 10:50 Blood Gas Specimen Source Blood arterial Arterial Blood Date Drawn 10/27/2016 10:53:21 AM Arterial Blood pH (Temp corrected) 7.229 *L Arterial Blood pCO2 (Temp correct) 26.6 L Arterial Blood pO2 (Temp corrected) 53.4 *L Arterial Blood HCO3 10.9 L Arterial Blood Base Excess -15.1 L Arterial Blood Oxygen Saturation 87.0 L Tomas Test N/A Arterial Blood Gas Puncture Site A-Line Arterial Blood Carboxyhemoglobin 0.3 Arterial Blood Methemoglobin 0.5 Blood Gas A-a O2 Differential 633.0 H Oxyhemoglobin Percent 86.3 L Total Hemoglobin 12.5 Blood Gas Temperature 37.0 Blood Gas Respiration Rate 18.0 Blood Gas Actual Respiration Rate 18 Blood Gas Modality VENT - AC FiO2 100.0 Blood Gas Tidal Volume 500.0 Blood Gas High PEEP Setting 5.0 Blood Gas Critical Value Read Back A KALEB HIRSCH Blood Gas Notified Whom Alexa AVINA Blood Gas Notified Time 10/27/2016 11:09:19 AM Bedside Glucose 234 H 215 Medications Medications Current Medications Acetaminophen (Tylenol Tab) 650 mg Q4H PRN PO NON-CARDIAC PAIN LEVEL (1-3); Start 10/25/16 at 14:30 Al Hydrox/Mg Hydrox/Simethicone (Mag-Al Plus) 30 ml Q4H PRN PO GASTROINTESTINAL UPSET; Start 10/25/16 at 14:30 Ondansetron HCl (Zofran Inj) 4 mg Q4H PRN IV NAUSEA AND/OR VOMITING; Start at 14:30 Aspirin (Aspirin) 81 mg DAILY PO ; Start 10/26/16 at 09:00; Status Future Hold Atorvastatin Calcium (Lipitor) 80 mg HS PO Last administered on 10/25/16 20:36 ; Admin Dose 80 MG; Start 10/25/16 at 21:00 Miscellaneous Information 1 ea NOTE XX ; Start 10/25/16 at 16:30 Glucose (Glutose) 15 gm Q15M PRN PO DECREASED GLUCOSE; Start 10/25/16 at 16:30 Glucose (Glutose) 22.5 gm Q15M PRN PO DECREASED GLUCOSE; Start 10/25/16 at 16: 30 Dextrose (D50w Syringe) 25 ml Q15M PRN IV DECREASED GLUCOSE; Start 10/25/16 at 16:30 Dextrose (D50w Syringe) 50 ml Q15M PRN IV DECREASED GLUCOSE; Start 10/25/16 at 16:30 Glucagon (Glucagen) 1 mg Q15M PRN IM DECREASED GLUCOSE; Start 10/25/16 at 16:30 Glucose (Glutose) 15 gm Q15M PRN BUCCAL DECREASED GLUCOSE; Start 10/25/16 at 16 :30 Diagnostic Test (Pha) (Accu-Chek) 1 ea Q1H XX ; Start 10/26/16 at 22:00 Dextrose (D50w Syringe) 25 ml Q15M PRN IV Till BS 80 mg/dL or above x2; Start 10/26/16 at 22:00 Dextrose 50 ml 50 ml Q15M PRN IV Till BS 80 mg/dL or above x2; Start 10/26/16 at 22:00 Sodium Chloride 1,000 ml @ 10 mls/hr Q24H IV ; Start 10/26/16 at 21:49 Milrinone Lactate 100 ml @ 7.313 mls/ hr TITRATE IV Last administered on 23:53; Admin Dose 7.5 MLS/HR; Start 10/26/16 at 22:00 Dextrose 1,000 ml @ 100 mls/hr Q10H IV Last administered on 10/27/16 10:17; Admin Dose 100 MLS/HR; Start 10/26/16 at 23:30 Norepinephrine 32 mg/Dextrose 250 ml @ 0.46 mls/hr TITRATE IV ; Start 10/27/16 at 08:00 Dopamine HCl 1600 mg/Dextrose 250 ml @ 1.21 mls/hr TITRATE IV ; Start 10/27/16 at 08:00 Phenylephrine HCl 160 mg/Dextrose 500 ml @ 18.75 mls/ hr TITRATE IV Last administered on 10/27/16 11:19; Admin Dose 18.75 MLS/HR; Start 10/27/16 at 09: 00 Potassium Chloride 50 ml @ 50 mls/hr Q1H IVPB Last administered on 10/27/16 11 :29; Admin Dose 50 MLS/HR; Start 10/27/16 at 11:30; Stop 10/27/16 at 14:29 Sodium Bicarbonate 100 meq/Dextrose/ Sodium Chloride 1,000 ml @ 100 mls/hr Q10H IV ; Start 10/27/16 at 12:30 Amiodarone HCl/ Dextrose (Cordarone Iv/ D5W) 500 ml @ 16.7 mls/hr Q24H IV ; Start 10/27/16 at 12:30 AMNA FUENTES Oct 27, 2016 12:58
[2016-10-27] MEDS: MILRINONE LACTATE 100 ML IV SCH (13:32)
[2016-10-27 15:30] LABS: AADO2 Arterial 637.8 mmHg (7.0-24.0); Arterial Base Excess -18.1 mmol/L (-3.0-3); Arterial COHb 0.2 % (0.0-3.0); Arterial Fraction of Oxyhgb 80.8 % (93.0-99.0); Arterial HCO3 8.9 mmol/L (22.0-26.0); Arterial MetHb 0.5 % (0.0-1.5); Arterial Total Hemglobin 10.9 g/dl (12.0-18.0); MODE VENT - AC
--- NOTE | 2016-10-27 15:32 | PRO ---
DATE OF PROCEDURE: 10/27/2016 PROCEDURE PERFORMED: EEG. HISTORY: This is an 81-year-old woman admitted following having a myocardial infarction. Underwent procedure and had a cardio respiratory arrest. EEG is to rule out encephalopathy. CURRENT MEDICATIONS: 1. Amiodarone. 2. Dopamine. PROCEDURE: Utilizing a 16 channel EEG machine cap scalp electrodes were applied in accordance with the International 10/20 system. Scalp to scalp, scalp to ear montages were displayed. Electrical impedances were measured and reported. DESCRIPTION: During a resting state, posterior dominant rhythm was seen about 4-5 hertz with low amplitude waves and on decreasing the sensitivity, the tracings become more apparent. There was no focal, lateralizing or epileptiform discharge identified. Hyperventilation was not performed. Photic stimulation had no response. INTERPRETATION: This is a very abnormal EEG due to presence of generalized bihemispheric background slowing with low amplitude waves and an enhancement of slow background activity on decreasing sensitivity consistent with severe encephalopathy. Please correlate these findings of the patient's clinical picture. Dictated By: Heather Kinney MD /martin/[email or web address] /Document#: [id number]
--- NOTE | 2016-10-27 16:15 | CONS ---
Date/Time of Note Date/Time of Note DATE: 10/27/16 TIME: 16:05 Assessment/Plan Assessment/Plan Chief Complaint/Hosp Course Found down and had MA Problems: Additional Assessment/Plan Patient is an 81 years old woman admitted following slumped in bathroom. 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 Found to be unresponsive. Still intubated and ventilated. EEG is very abnormal due to very slow and low amplitude wave which became detectable on decreasing sensitivity. CT brain could not be done due to hemodynamic unstability. Plan Discussed with patient's family about poor prognosis DNR status Will follow Consultation Date/Type/Reason Admit Date/Time Oct 26, 2016 at 22:31 Date of Consultation: Oct 27, 2016 Type of Consultation: Neurology Reason for Consultation Cardiac arrest Hx of Present Illness Patient is an 81 years old woman admitted following slumped in bathroom. 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 Found to be unresponsive. Still intubated and ventilated. EEG is very abnormal due to very slow and low amplitude wave which became detectable on decreasing sensitivity. Subjective hx not possible: pt non-verbal, pt critical status Constitutional: diaphoresis Cardiovascular: chest pain Gastrointestinal: No blood, No constipation, No decreased appetite, No diarrhea , No flatus, No nausea, No no complaints, No other, No pain, No passing stool, No vomiting Genitourinary: No bleeding, No discharge, No dysuria, No flank pain, No hematuria, No no complaints, No other Musculoskeletal: No back pain, No bone/joint pain, No neck pain, No no complaints, No other, No restricted range of motion, No swelling Skin: No bruising, No erythema, No laceration, No no complaints, No other, No pruritis, No rash, No skin lesions Neurologic: No confusion, No dizziness, No focal-weakness, No headache, No no complaints, No other, No seizure, No syncope Endocrine: No dry skin, No no complaints, No other, No polydypsia, No polyuria , No temp intolerance Lymphatic: No adenopathy, No lymphadema, No no complaints, No other, No tender nodes Psychological: no complaints Immunologic: No immunodeficiency, No no complaints, No other, No pruritis, No rhinitis, No urticaria Past Medical History Medical History: hypertension Past Surgical History Past Surgical Hx: cholecystectomy Social History Alcohol Use: none Smoking Status: Never smoker Drug Use: none Exam/Review of Systems Vital Signs Vitals Vital Signs Date Time Temp Pulse Resp B/P Pulse Ox O2 Delivery O2 Flow Rate FiO2 10/27/16 15:43 60 18 90 100 10/27/16 12:45 96/45 10/27/16 12:00 98.6 10/26/16 08:00 Room Air 10/25/16 15:30 2.0 Intake and Output 10/26/16 10/26/16 10/27/16 15:00 23:00 07:00 Intake Total 8837.149 ml 2124.888 ml Output Total 140 ml 1758 ml 1133 ml Balance -140 ml 7079.149 ml 991.888 ml Exam Constitutional: other (unresponsive, intubated, ventilated) Head: atraumatic, normocephalic Eyes: nl conjunctiva ENMT: nl external ears & nose Neck: non-tender Cardiovascular: regular rate and rhythm Neurological: other (Unresponsice, intubated, ventilated, pupils are dilated, fixed, unresponsive to light, no corneals, gag or dolls eyes, no withdraws to noxious stimuli) Results Result Diagram: 10/27/16 0355 10/27/16 0752 Results 24 hrs Laboratory Tests Test 10/26/16 21:21 10/26/16 22:00 10/26/16 22:15 10/26/16 22:45 White Blood Count 10.6 # Red Blood Count 2.39 #L Hemoglobin 7.4 #L Hematocrit 22.7 #L Mean Corpuscular Volume 95.0 Mean Corpuscular Hemoglobin 31.0 Mean Corpuscular Hemoglobin Concent 32.6 Red Cell Distribution Width 14.7 H Platelet Count 110 #L Mean Platelet Volume 10.5 H Neutrophils % 67.2 Lymphocytes % 14.8 L Monocytes % 6.1 Eosinophils % 0.4 Basophils % 0.1 Nucleated Red Blood Cells % 0.4 H Neutrophils # 7.1 Lymphocytes # 1.6 Monocytes # 0.7 Eosinophils # 0.0 Basophils # 0.0 Nucleated Red Blood Cells # 0.0 Prothrombin Time 44.9 #H Prothrombin Time Ratio 3.5 INR International Normalized Ratio 4.68 Activated Partial Thromboplast Time > 180.0 *H Sodium Level 151 H Potassium Level 4.3 Chloride Level 109 Carbon Dioxide Level 13 #L Anion Gap 33 #H Blood Urea Nitrogen 12 # Creatinine 0.96 Glucose Level 159 Calcium Level 12.3 #H Magnesium Level 3.5 H Blood Gas Specimen Source BLMV Blood arterial Blood arterial Arterial Blood Date Drawn 10/26/2016 10:20:01 PM 10/26/2016 10:10:05 PM 10/26/2016 10:50:06 PM Arterial Blood Gas Puncture Site VENOUS LINE A-Line A-Line Tomas Test N/A N/A N/A Venous Blood pO2 (Temp Corrected) 45.5 H Venous Blood Oxygen Saturation 64.0 Venous Blood Total Hemoglobin 8.3 Venous Blood Oxyhemoglobin 63.3 Venous Blood Methemoglobin 0.9 Carboxyhemoglobin 0.2 Blood Gas Temperature 37.0 37.0 37.0 Blood Gas Respiration Rate 10.0 10.0 10.0 Blood Gas Actual Respiration Rate 10 10 10 Blood Gas Modality VENT - AC VENT - AC VENT - AC FiO2 100.0 100.0 100.0 Blood Gas Tidal Volume 500.0 500.0 500.0 Blood Gas Low PEEP Setting 5.0 5.0 5.0 Blood Gas Notified Whom TL MA UP Blood Gas Notified Time 10/26/2016 10:25:09 PM 10/26/2016 10:21:56 PM 10/26/2016 11:01:34 PM Arterial Blood pH (Temp corrected) 7.005 *L 7.126 *L Arterial Blood pCO2 (Temp correct) 38.8 42.5 Arterial Blood pO2 (Temp corrected) 108.1 H 114.8 H Arterial Blood HCO3 9.5 *L 13.7 L Arterial Blood Base Excess -20.3 L -14.5 L Arterial Blood Oxygen Saturation 94.5 L 96.1 Arterial Blood Carboxyhemoglobin 0.2 0.2 Arterial Blood Methemoglobin 0.9 0.7 Mixed Venous Blood pH 7.005 L Mixed Venous Blood PCO2 38.8 L Mixed Venous Blood PO2 108.1 H Mixed Venous Blood HCO3 9.5 L Mixed Venous Blood Base Excess -20.3 Mixed Venous Blood O2 Saturation 94.5 H Mixed Venous Blood Total Hemoglobin 7.9 Mixed Venous Blood Oxyhemoglobin 93.5 Mixed Venous Bld Carboxyhemoglobin 0.2 Mixed Venous Blood Methemoglobin 0.9 Blood Gas A-a O2 Differential 566.1 555.7 H Oxyhemoglobin Percent 93.5 95.2 Total Hemoglobin 7.9 L 8.0 L Blood Gas Critical Value Read Back ARIE JIMENEZ RN Bedside Glucose 120 Test 10/26/16 23:15 10/27/16 00:22 10/27/16 00:45 10/27/16 03:10 Blood Gas Specimen Source Blood arterial Blood arterial Arterial Blood Date Drawn 10/26/2016 11:51:14 PM 10/27/2016 12:50:00 AM Arterial Blood pH (Temp corrected) 7.234 *L 7.311 L Arterial Blood pCO2 (Temp correct) 27.9 L 30.8 L Arterial Blood pO2 (Temp corrected) 90.9 H 80.8 Arterial Blood HCO3 11.5 L 15.2 L Arterial Blood Base Excess -14.6 L -9.9 L Arterial Blood Oxygen Saturation 94.5 L 94.2 L Tomas Test N/A N/A Arterial Blood Gas Puncture Site A-Line A-Line Arterial Blood Carboxyhemoglobin 0.1 0.1 Arterial Blood Methemoglobin 0.5 0.3 Blood Gas A-a O2 Differential 594.2 H 601.4 H Oxyhemoglobin Percent 93.9 93.8 Total Hemoglobin 8.9 L 10.2 L Blood Gas Temperature 37.0 37.0 Blood Gas Respiration Rate 18.0 18.0 Blood Gas Actual Respiration Rate 18 18 Blood Gas Modality VENT - AC VENT - AC FiO2 100.0 100.0 Blood Gas Tidal Volume 500.0 500.0 Blood Gas Low PEEP Setting 5.0 5.0 Blood Gas Critical Value Read Back ARIE HIRSCH Blood Gas Notified Whom MA UP Blood Gas Notified Time 10/27/2016 12:02:58 AM 10/27/2016 1:08:00 AM Bedside Glucose 133 273 H Test 10/27/16 03:23 10/27/16 03:55 10/27/16 04:01 10/27/16 04:45 Blood Gas Specimen Source Blood arterial Blood arterial Arterial Blood Date Drawn 10/27/2016 3:40:00 AM 10/27/2016 6:20:14 AM Arterial Blood pH (Temp corrected) 7.165 *L 7.289 *L Arterial Blood pCO2 (Temp correct) 24.4 L 27.1 L Arterial Blood pO2 (Temp corrected) 65.6 L 59.0 L Arterial Blood HCO3 8.6 *L 12.7 L Arterial Blood Base Excess -18.3 L -12.3 L Arterial Blood Oxygen Saturation 90.0 L 90.3 L Tomas Test N/A N/A Arterial Blood Gas Puncture Site A-Line A-Line Arterial Blood Carboxyhemoglobin 0.2 0.2 Arterial Blood Methemoglobin 0.4 0.6 Blood Gas A-a O2 Differential 623.0 H 626.9 H Oxyhemoglobin Percent 89.5 L 89.6 L Total Hemoglobin 12.3 12.6 Blood Gas Temperature 37.0 37.0 Blood Gas Respiration Rate 18.0 18.0 Blood Gas Actual Respiration Rate 18 18 Blood Gas Modality VENT - AC VENT - AC FiO2 100.0 100.0 Blood Gas Tidal Volume 500.0 500.0 Blood Gas Low PEEP Setting 5.0 5.0 Blood Gas Critical Value Read Back T MARITZA SARGENT RN Blood Gas Notified Whom Tana GRIMM RCP, MA Blood Gas Notified Time 10/27/2016 3:50:00 AM 10/27/2016 6:27:57 AM White Blood Count 8.3 # Red Blood Count 3.63 #L Hemoglobin 11.2 #L Hematocrit 34.6 #L Mean Corpuscular Volume 95.3 Mean Corpuscular Hemoglobin 30.9 Mean Corpuscular Hemoglobin Concent 32.4 Red Cell Distribution Width 16.2 H Platelet Count 84 #L Mean Platelet Volume 10.7 H Neutrophils % Segmented Neutrophils % (Manual) 56 Band Neutrophils % (Manual) 25 H Lymphocytes % Lymphocytes % (Manual) 9 L Monocytes % Monocytes % (Manual) 4 Eosinophils % Eosinophils % (Manual) 1 Basophils % Metamyelocytes % (manual) 1 H Myelocytes % (Manual) 4 H Nucleated Red Blood Cells % 0.6 H Neutrophils # Neutrophils # (Manual) 4.8 Band Neutrophils # 2.0 H Absolute Lymphocytes (Manual) 0.7 L Lymphocytes # Monocytes # Absolute Monocytes (Manual) 0.3 Eosinophils # Basophils # Metamyelocytes # 0.0 Myelocytes # 0.3 H Nucleated Red Blood Cells # Platelet Estimate DECREASED Polychromasia 1+ Poikilocytosis 3+ Anisocytosis 2+ Microcytosis 2+ Prothrombin Time 43.6 H Prothrombin Time Ratio 3.4 INR International Normalized Ratio 4.51 Activated Partial Thromboplast Time > 180.0 *H Bedside Glucose 296 H Test 10/27/16 05:20 10/27/16 05:36 10/27/16 05:54 10/27/16 07:13 Bedside Glucose 304 H 288 H 310 H Lab Scanned Report BLOOD TRANSFUSION Test 10/27/16 07:30 10/27/16 07:52 10/27/16 08:28 10/27/16 09:44 Blood Gas Specimen Source Blood arterial Arterial Blood Date Drawn 10/27/2016 8:40:29 AM Arterial Blood pH (Temp corrected) 7.308 L Arterial Blood pCO2 (Temp correct) 25.1 L Arterial Blood pO2 (Temp corrected) 56.4 L Arterial Blood HCO3 12.3 L Arterial Blood Base Excess -12.2 L Arterial Blood Oxygen Saturation 89.5 L Tomas Test N/A Arterial Blood Gas Puncture Site A-Line Arterial Blood Carboxyhemoglobin 0.3 Arterial Blood Methemoglobin 0.5 Blood Gas A-a O2 Differential 631.5 H Oxyhemoglobin Percent 88.8 L Total Hemoglobin 13.2 Blood Gas Temperature 37.0 Blood Gas Respiration Rate 18.0 Blood Gas Actual Respiration Rate 18 Blood Gas Modality VENT - AC FiO2 100.0 Blood Gas Tidal Volume 500.0 Blood Gas Low PEEP Setting 5.0 Blood Gas Notified Whom CW Blood Gas Notified Time 10/27/2016 8:47:36 AM Sodium Level 151 H Potassium Level 3.0 L Chloride Level 97 # Carbon Dioxide Level 18 L Anion Gap 39 H Blood Urea Nitrogen 15 Creatinine 1.45 H Glucose Level 292 #H Calcium Level 11.4 H Magnesium Level 3.0 H Bedside Glucose 242 H 235 H Test 10/27/16 10:07 10/27/16 10:13 10/27/16 10:50 10/27/16 12:30 Blood Gas Specimen Source Blood arterial Arterial Blood Date Drawn 10/27/2016 10:53:21 AM Arterial Blood pH (Temp corrected) 7.229 *L Arterial Blood pCO2 (Temp correct) 26.6 L Arterial Blood pO2 (Temp corrected) 53.4 *L Arterial Blood HCO3 10.9 L Arterial Blood Base Excess -15.1 L Arterial Blood Oxygen Saturation 87.0 L Tomas Test N/A Arterial Blood Gas Puncture Site A-Line Arterial Blood Carboxyhemoglobin 0.3 Arterial Blood Methemoglobin 0.5 Blood Gas A-a O2 Differential 633.0 H Oxyhemoglobin Percent 86.3 L Total Hemoglobin 12.5 Blood Gas Temperature 37.0 Blood Gas Respiration Rate 18.0 Blood Gas Actual Respiration Rate 18 Blood Gas Modality VENT - AC FiO2 100.0 Blood Gas Tidal Volume 500.0 Blood Gas High PEEP Setting 5.0 Blood Gas Critical Value Read Back A KALEB HIRSCH Blood Gas Notified Whom T KAILYN Blood Gas Notified Time 10/27/2016 11:09:19 AM Bedside Glucose 234 H 215 288 H Test 10/27/16 13:27 10/27/16 14:19 10/27/16 15:14 10/27/16 15:20 Bedside Glucose 246 H 254 H 182 Blood Gas Specimen Source Blood arterial Arterial Blood Date Drawn 10/27/2016 3:15:32 PM Arterial Blood pH (Temp corrected) 7.169 *L Arterial Blood pCO2 (Temp correct) 24.9 L Arterial Blood pO2 (Temp corrected) 50.3 *L Arterial Blood HCO3 8.9 *L Arterial Blood Base Excess -18.1 L Arterial Blood Oxygen Saturation 81.4 L Tomas Test N/A Arterial Blood Gas Puncture Site A-Line Arterial Blood Carboxyhemoglobin 0.2 Arterial Blood Methemoglobin 0.5 Blood Gas A-a O2 Differential 637.8 H Oxyhemoglobin Percent 80.8 L Total Hemoglobin 10.9 L Blood Gas Temperature 37.0 Blood Gas Respiration Rate 18.0 Blood Gas Actual Respiration Rate 18 Blood Gas Modality VENT - AC FiO2 100.0 Blood Gas Tidal Volume 500.0 Blood Gas High PEEP Setting 5.0 Blood Gas Critical Value Read Back A KALEB HIRSCH Blood Gas Notified Whom TK Blood Gas Notified Time 10/27/2016 3:29:30 PM Medications Medications Current Medications Acetaminophen (Tylenol Tab) 650 mg Q4H PRN PO NON-CARDIAC PAIN LEVEL (1-3); Start 10/25/16 at 14:30 Al Hydrox/Mg Hydrox/Simethicone (Mag-Al Plus) 30 ml Q4H PRN PO GASTROINTESTINAL UPSET; Start 10/25/16 at 14:30 Ondansetron HCl (Zofran Inj) 4 mg Q4H PRN IV NAUSEA AND/OR VOMITING; Start at 14:30 Aspirin (Aspirin) 81 mg DAILY PO ; Start 10/26/16 at 09:00; Status Future Hold Atorvastatin Calcium (Lipitor) 80 mg HS PO Last administered on 10/25/16t 20:36 ; Admin Dose 80 MG; Start 10/25/16 at 21:00 Miscellaneous Information 1 ea NOTE XX ; Start 10/25/16 at 16:30 Glucose (Glutose) 15 gm Q15M PRN PO DECREASED GLUCOSE; Start 10/25/16 at 16:30 Glucose (Glutose) 22.5 gm Q15M PRN PO DECREASED GLUCOSE; Start 10/25/16 at 16: 30 Dextrose (D50w Syringe) 25 ml Q15M PRN IV DECREASED GLUCOSE; Start 10/25/16 at 16:30 Dextrose (D50w Syringe) 50 ml Q15M PRN IV DECREASED GLUCOSE; Start 10/25/16 at 16:30 Glucagon (Glucagen) 1 mg Q15M PRN IM DECREASED GLUCOSE; Start 10/25/16 at 16:30 Glucose (Glutose) 15 gm Q15M PRN BUCCAL DECREASED GLUCOSE; Start 10/25/16 at 16 :30 Diagnostic Test (Pha) (Accu-Chek) 1 ea Q1H XX ; Start 10/26/16 at 22:00 Dextrose (D50w Syringe) 25 ml Q15M PRN IV Till BS 80 mg/dL or above x2; Start 10/26/16 at 22:00 Dextrose 50 ml 50 ml Q15M PRN IV Till BS 80 mg/dL or above x2; Start 10/26/16 at 22:00 Sodium Chloride 1,000 ml @ 10 mls/hr Q24H IV ; Start 10/26/16 at 21:49 Norepinephrine 32 mg/Dextrose 250 ml @ 0.46 mls/hr TITRATE IV ; Start 10/27/16 at 08:00 Dopamine HCl 1600 mg/Dextrose 250 ml @ 1.21 mls/hr TITRATE IV Last administered on 10/27/16 14:36; Admin Dose 12.18 MLS/HR; Start 10/27/16 at 08: 00 Phenylephrine HCl 160 mg/Dextrose 500 ml @ 18.75 mls/ hr TITRATE IV Last administered on 10/27/16 11:19; Admin Dose 18.75 MLS/HR; Start 10/27/16 at 09: 00 Sodium Bicarbonate 100 meq/Dextrose/ Sodium Chloride 1,000 ml @ 100 mls/hr Q10H IV Last administered on 10/27/16 13:01; Admin Dose 100 MLS/HR; Start at 12:30 Amiodarone HCl/ Dextrose (Cordarone Iv/ D5W) 500 ml @ 16.7 mls/hr Q24H IV Last administered on 10/27/16t 14:06; Admin Dose 16.7 MLS/HR; Start 10/27/16 at 12:30 RAUL FARRELL MD Oct 27, 2016 16:15
--- NOTE | 2016-10-27 16:31 | RADRPT ---
Vent Rate: 68 bpm RR Interval: 0 msec AL Interval: 148 msec QRS Duration: 76 msec QT Interval: 450 msec QTC Interval: 478 msec P-R-T [place]: 9 - 51 - 81 degrees Normal sinus rhythm with sinus arrhythmia Prolonged QT Abnormal ECG Electronically Signed By: Jaspal Jones [id number]
--- NOTE | 2016-10-27 16:35 | RADRPT ---
Vent Rate: 84 bpm RR Interval: 0 msec AR Interval: 172 msec QRS Duration: 90 msec QT Interval: 374 msec QTC Interval: 441 msec P-R-T [place]: 107 - 122 - 0 degrees Normal sinus rhythm Right axis deviation Pulmonary disease pattern Nonspecific T wave abnormality Abnormal ECG Electronically Signed By: Jaspal Jones [id number]
--- NOTE | 2016-10-27 18:09 | PN ---
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 Went for CABG, suffered cardiac arrest from RV failure and anoxic brain injury, now in cardiogenic shock and respiratory failure. DNR, very poor prognosis, likely will code in coming day - Continue pressors and vent support per family wishes CAD s/p STEMI: - Statin - Aspirin daily DNR Problems: Subjective 24 Hr Interval Summary Free Text/Dictation Patient unfortunately suffered anoxic brain injury during CABG yesterday Pupils fixed/dilated, minimal EEG activity Poor prognosis communicated to family Exam/Review of Systems Vital Signs Vitals Vital Signs Date Time Temp Pulse Resp B/P Pulse Ox O2 Delivery O2 Flow Rate FiO2 10/27/16 17:37 60 18 45 100 10/27/16 15:30 60/28 10/27/16 15:00 97.5 10/26/16 08:00 Room Air 10/25/16 15:30 2.0 Intake and Output 10/26/16 10/26/16 10/27/16 15:00 23:00 07:00 Intake Total 8837.149 ml 2124.888 ml Output Total 140 ml 1758 ml 1133 ml Balance -140 ml 7079.149 ml 991.888 ml Results Result Diagram: 10/27/16 0355 10/27/16 0752 Results 24 hrs Laboratory Tests Test 10/26/16 21:21 10/26/16 22:00 10/26/16 22:15 10/26/16 22:45 White Blood Count 10.6 # Red Blood Count 2.39 #L Hemoglobin 7.4 #L Hematocrit 22.7 #L Mean Corpuscular Volume 95.0 Mean Corpuscular Hemoglobin 31.0 Mean Corpuscular Hemoglobin Concent 32.6 Red Cell Distribution Width 14.7 H Platelet Count 110 #L Mean Platelet Volume 10.5 H Neutrophils % 67.2 Lymphocytes % 14.8 L Monocytes % 6.1 Eosinophils % 0.4 Basophils % 0.1 Nucleated Red Blood Cells % 0.4 H Neutrophils # 7.1 Lymphocytes # 1.6 Monocytes # 0.7 Eosinophils # 0.0 Basophils # 0.0 Nucleated Red Blood Cells # 0.0 Prothrombin Time 44.9 #H Prothrombin Time Ratio 3.5 INR International Normalized Ratio 4.68 Activated Partial Thromboplast Time > 180.0 *H Sodium Level 151 H Potassium Level 4.3 Chloride Level 109 Carbon Dioxide Level 13 #L Anion Gap 33 #H Blood Urea Nitrogen 12 # Creatinine 0.96 Glucose Level 159 Calcium Level 12.3 #H Magnesium Level 3.5 H Blood Gas Specimen Source BLMV Blood arterial Blood arterial Arterial Blood Date Drawn 10/26/2016 10:20:01 PM 10/26/2016 10:10:05 PM 10/26/2016 10:50:06 PM Arterial Blood Gas Puncture Site VENOUS LINE A-Line A-Line Tomas Test N/A N/A N/A Venous Blood pO2 (Temp Corrected) 45.5 H Venous Blood Oxygen Saturation 64.0 Venous Blood Total Hemoglobin 8.3 Venous Blood Oxyhemoglobin 63.3 Venous Blood Methemoglobin 0.9 Carboxyhemoglobin 0.2 Blood Gas Temperature 37.0 37.0 37.0 Blood Gas Respiration Rate 10.0 10.0 10.0 Blood Gas Actual Respiration Rate 10 10 10 Blood Gas Modality VENT - AC VENT - AC VENT - AC FiO2 100.0 100.0 100.0 Blood Gas Tidal Volume 500.0 500.0 500.0 Blood Gas Low PEEP Setting 5.0 5.0 5.0 Blood Gas Notified Whom TL MA UP Blood Gas Notified Time 10/26/2016 10:25:09 PM 10/26/2016 10:21:56 PM 10/26/2016 11:01:34 PM Arterial Blood pH (Temp corrected) 7.005 *L 7.126 *L Arterial Blood pCO2 (Temp correct) 38.8 42.5 Arterial Blood pO2 (Temp corrected) 108.1 H 114.8 H Arterial Blood HCO3 9.5 *L 13.7 L Arterial Blood Base Excess -20.3 L -14.5 L Arterial Blood Oxygen Saturation 94.5 L 96.1 Arterial Blood Carboxyhemoglobin 0.2 0.2 Arterial Blood Methemoglobin 0.9 0.7 Mixed Venous Blood pH 7.005 L Mixed Venous Blood PCO2 38.8 L Mixed Venous Blood PO2 108.1 H Mixed Venous Blood HCO3 9.5 L Mixed Venous Blood Base Excess -20.3 Mixed Venous Blood O2 Saturation 94.5 H Mixed Venous Blood Total Hemoglobin 7.9 Mixed Venous Blood Oxyhemoglobin 93.5 Mixed Venous Bld Carboxyhemoglobin 0.2 Mixed Venous Blood Methemoglobin 0.9 Blood Gas A-a O2 Differential 566.1 555.7 H Oxyhemoglobin Percent 93.5 95.2 Total Hemoglobin 7.9 L 8.0 L Blood Gas Critical Value Read Back ARIE JIMENEZ RN Bedside Glucose 120 Test 10/26/16 23:15 10/27/16 00:22 10/27/16 00:45 10/27/16 03:10 Blood Gas Specimen Source Blood arterial Blood arterial Arterial Blood Date Drawn 10/26/2016 11:51:14 PM 10/27/2016 12:50:00 AM Arterial Blood pH (Temp corrected) 7.234 *L 7.311 L Arterial Blood pCO2 (Temp correct) 27.9 L 30.8 L Arterial Blood pO2 (Temp corrected) 90.9 H 80.8 Arterial Blood HCO3 11.5 L 15.2 L Arterial Blood Base Excess -14.6 L -9.9 L Arterial Blood Oxygen Saturation 94.5 L 94.2 L Tomas Test N/A N/A Arterial Blood Gas Puncture Site A-Line A-Line Arterial Blood Carboxyhemoglobin 0.1 0.1 Arterial Blood Methemoglobin 0.5 0.3 Blood Gas A-a O2 Differential 594.2 H 601.4 H Oxyhemoglobin Percent 93.9 93.8 Total Hemoglobin 8.9 L 10.2 L Blood Gas Temperature 37.0 37.0 Blood Gas Respiration Rate 18.0 18.0 Blood Gas Actual Respiration Rate 18 18 Blood Gas Modality VENT - AC VENT - AC FiO2 100.0 100.0 Blood Gas Tidal Volume 500.0 500.0 Blood Gas Low PEEP Setting 5.0 5.0 Blood Gas Critical Value Read Back ARIE HIRSCH Blood Gas Notified Whom MA UP Blood Gas Notified Time 10/27/2016 12:02:58 AM 10/27/2016 1:08:00 AM Bedside Glucose 133 273 H Test 10/27/16 03:23 10/27/16 03:55 10/27/16 04:01 10/27/16 04:45 Blood Gas Specimen Source Blood arterial Blood arterial Arterial Blood Date Drawn 10/27/2016 3:40:00 AM 10/27/2016 6:20:14 AM Arterial Blood pH (Temp corrected) 7.165 *L 7.289 *L Arterial Blood pCO2 (Temp correct) 24.4 L 27.1 L Arterial Blood pO2 (Temp corrected) 65.6 L 59.0 L Arterial Blood HCO3 8.6 *L 12.7 L Arterial Blood Base Excess -18.3 L -12.3 L Arterial Blood Oxygen Saturation 90.0 L 90.3 L Tomas Test N/A N/A Arterial Blood Gas Puncture Site A-Line A-Line Arterial Blood Carboxyhemoglobin 0.2 0.2 Arterial Blood Methemoglobin 0.4 0.6 Blood Gas A-a O2 Differential 623.0 H 626.9 H Oxyhemoglobin Percent 89.5 L 89.6 L Total Hemoglobin 12.3 12.6 Blood Gas Temperature 37.0 37.0 Blood Gas Respiration Rate 18.0 18.0 Blood Gas Actual Respiration Rate 18 18 Blood Gas Modality VENT - AC VENT - AC FiO2 100.0 100.0 Blood Gas Tidal Volume 500.0 500.0 Blood Gas Low PEEP Setting 5.0 5.0 Blood Gas Critical Value Read Back T MARITZA RN KIRBYUZ RN Blood Gas Notified Whom Tana GRIMM RCP, MA Blood Gas Notified Time 10/27/2016 3:50:00 AM 10/27/2016 6:27:57 AM White Blood Count 8.3 # Red Blood Count 3.63 #L Hemoglobin 11.2 #L Hematocrit 34.6 #L Mean Corpuscular Volume 95.3 Mean Corpuscular Hemoglobin 30.9 Mean Corpuscular Hemoglobin Concent 32.4 Red Cell Distribution Width 16.2 H Platelet Count 84 #L Mean Platelet Volume 10.7 H Neutrophils % Segmented Neutrophils % (Manual) 56 Band Neutrophils % (Manual) 25 H Lymphocytes % Lymphocytes % (Manual) 9 L Monocytes % Monocytes % (Manual) 4 Eosinophils % Eosinophils % (Manual) 1 Basophils % Metamyelocytes % (manual) 1 H Myelocytes % (Manual) 4 H Nucleated Red Blood Cells % 0.6 H Neutrophils # Neutrophils # (Manual) 4.8 Band Neutrophils # 2.0 H Absolute Lymphocytes (Manual) 0.7 L Lymphocytes # Monocytes # Absolute Monocytes (Manual) 0.3 Eosinophils # Basophils # Metamyelocytes # 0.0 Myelocytes # 0.3 H Nucleated Red Blood Cells # Platelet Estimate DECREASED Polychromasia 1+ Poikilocytosis 3+ Anisocytosis 2+ Microcytosis 2+ Prothrombin Time 43.6 H Prothrombin Time Ratio 3.4 INR International Normalized Ratio 4.51 Activated Partial Thromboplast Time > 180.0 *H Bedside Glucose 296 H Test 10/27/16 05:20 10/27/16 05:36 10/27/16 05:54 10/27/16 07:13 Bedside Glucose 304 H 288 H 310 H Lab Scanned Report BLOOD TRANSFUSION Test 10/27/16 07:30 10/27/16 07:52 10/27/16 08:28 10/27/16 09:44 Blood Gas Specimen Source Blood arterial Arterial Blood Date Drawn 10/27/2016 8:40:29 AM Arterial Blood pH (Temp corrected) 7.308 L Arterial Blood pCO2 (Temp correct) 25.1 L Arterial Blood pO2 (Temp corrected) 56.4 L Arterial Blood HCO3 12.3 L Arterial Blood Base Excess -12.2 L Arterial Blood Oxygen Saturation 89.5 L Tomas Test N/A Arterial Blood Gas Puncture Site A-Line Arterial Blood Carboxyhemoglobin 0.3 Arterial Blood Methemoglobin 0.5 Blood Gas A-a O2 Differential 631.5 H Oxyhemoglobin Percent 88.8 L Total Hemoglobin 13.2 Blood Gas Temperature 37.0 Blood Gas Respiration Rate 18.0 Blood Gas Actual Respiration Rate 18 Blood Gas Modality VENT - AC FiO2 100.0 Blood Gas Tidal Volume 500.0 Blood Gas Low PEEP Setting 5.0 Blood Gas Notified Whom CW Blood Gas Notified Time 10/27/2016 8:47:36 AM Sodium Level 151 H Potassium Level 3.0 L Chloride Level 97 # Carbon Dioxide Level 18 L Anion Gap 39 H Blood Urea Nitrogen 15 Creatinine 1.45 H Glucose Level 292 #H Calcium Level 11.4 H Magnesium Level 3.0 H Bedside Glucose 242 H 235 H Test 10/27/16 10:07 10/27/16 10:13 10/27/16 10:50 10/27/16 12:30 Blood Gas Specimen Source Blood arterial Arterial Blood Date Drawn 10/27/2016 10:53:21 AM Arterial Blood pH (Temp corrected) 7.229 *L Arterial Blood pCO2 (Temp correct) 26.6 L Arterial Blood pO2 (Temp corrected) 53.4 *L Arterial Blood HCO3 10.9 L Arterial Blood Base Excess -15.1 L Arterial Blood Oxygen Saturation 87.0 L Tomas Test N/A Arterial Blood Gas Puncture Site A-Line Arterial Blood Carboxyhemoglobin 0.3 Arterial Blood Methemoglobin 0.5 Blood Gas A-a O2 Differential 633.0 H Oxyhemoglobin Percent 86.3 L Total Hemoglobin 12.5 Blood Gas Temperature 37.0 Blood Gas Respiration Rate 18.0 Blood Gas Actual Respiration Rate 18 Blood Gas Modality VENT - AC FiO2 100.0 Blood Gas Tidal Volume 500.0 Blood Gas High PEEP Setting 5.0 Blood Gas Critical Value Read Back A KALEB HIRSCH Blood Gas Notified Whom Alexa AVINA Blood Gas Notified Time 10/27/2016 11:09:19 AM Bedside Glucose 234 H 215 288 H Test 10/27/16 13:27 10/27/16 14:19 10/27/16 15:14 10/27/16 15:20 Bedside Glucose 246 H 254 H 182 Blood Gas Specimen Source Blood arterial Arterial Blood Date Drawn 10/27/2016 3:15:32 PM Arterial Blood pH (Temp corrected) 7.169 *L Arterial Blood pCO2 (Temp correct) 24.9 L Arterial Blood pO2 (Temp corrected) 50.3 *L Arterial Blood HCO3 8.9 *L Arterial Blood Base Excess -18.1 L Arterial Blood Oxygen Saturation 81.4 L Tomas Test N/A Arterial Blood Gas Puncture Site A-Line Arterial Blood Carboxyhemoglobin 0.2 Arterial Blood Methemoglobin 0.5 Blood Gas A-a O2 Differential 637.8 H Oxyhemoglobin Percent 80.8 L Total Hemoglobin 10.9 L Blood Gas Temperature 37.0 Blood Gas Respiration Rate 18.0 Blood Gas Actual Respiration Rate 18 Blood Gas Modality VENT - AC FiO2 100.0 Blood Gas Tidal Volume 500.0 Blood Gas High PEEP Setting 5.0 Blood Gas Critical Value Read Back A KALEB HIRSCH Blood Gas Notified Whom TK Blood Gas Notified Time 10/27/2016 3:29:30 PM Test 10/27/16 16:28 Bedside Glucose 235 H Medications Medications Current Medications Acetaminophen (Tylenol Tab) 650 mg Q4H PRN PO NON-CARDIAC PAIN LEVEL (1-3); Start 10/25/16 at 14:30 Al Hydrox/Mg Hydrox/Simethicone (Mag-Al Plus) 30 ml Q4H PRN PO GASTROINTESTINAL UPSET; Start 10/25/16 at 14:30 Ondansetron HCl (Zofran Inj) 4 mg Q4H PRN IV NAUSEA AND/OR VOMITING; Start at 14:30 Aspirin (Aspirin) 81 mg DAILY PO ; Start 10/26/16 at 09:00; Status Future Hold Atorvastatin Calcium (Lipitor) 80 mg HS PO Last administered on 10/25/16 20:36 ; Admin Dose 80 MG; Start 10/25/16 at 21:00 Miscellaneous Information 1 ea NOTE XX ; Start 10/25/16 at 16:30 Glucose (Glutose) 15 gm Q15M PRN PO DECREASED GLUCOSE; Start 10/25/16 at 16:30 Glucose (Glutose) 22.5 gm Q15M PRN PO DECREASED GLUCOSE; Start 10/25/16 at 16: 30 Dextrose (D50w Syringe) 25 ml Q15M PRN IV DECREASED GLUCOSE; Start 10/25/16 at 16:30 Dextrose (D50w Syringe) 50 ml Q15M PRN IV DECREASED GLUCOSE; Start 10/25/16 at 16:30 Glucagon (Glucagen) 1 mg Q15M PRN IM DECREASED GLUCOSE; Start 10/25/16 at 16:30 Glucose 15 gm 15 gm Q15M PRN BUCCAL DECREASED GLUCOSE; Start 10/25/16 at 16:30 Sodium Chloride 1,000 ml @ 10 mls/hr Q24H IV ; Start 10/26/16 at 21:49 Norepinephrine 32 mg/Dextrose 250 ml @ 0.46 mls/hr TITRATE IV ; Start 10/27/16 at 08:00 Dopamine HCl 1600 mg/Dextrose 250 ml @ 1.21 mls/hr TITRATE IV Last administered on 10/27/16 14:36; Admin Dose 12.18 MLS/HR; Start 10/27/16 at 08: 00 Phenylephrine HCl 160 mg/Dextrose 500 ml @ 18.75 mls/ hr TITRATE IV Last administered on 10/27/16 11:19; Admin Dose 18.75 MLS/HR; Start 10/27/16 at 09: 00 Sodium Bicarbonate 100 meq/Dextrose/ Sodium Chloride 1,000 ml @ 100 mls/hr Q10H IV Last administered on 10/27/16 13:01; Admin Dose 100 MLS/HR; Start at 12:30 Amiodarone HCl/ Dextrose (Cordarone Iv/ D5W) 500 ml @ 16.7 mls/hr Q24H IV Last administered on 10/27/16t 14:06; Admin Dose 16.7 MLS/HR; Start 10/27/16 at 12:30 CASSIA BENDER MD Oct 27, 2016 18:09
[2016-10-27] MEDS ORDERED: NORepinephrine 8MG/250 ML (PMX 250 ML ONE (18:14)
--- NOTE | 2016-10-27 19:36 | CONS ---
DATE OF ADMISSION: 10/26/2016 DATE OF CONSULTATION: 10/27/2016 REASON FOR CONSULTATION: Ventilator management. HISTORY OF PRESENT ILLNESS: This is a unfortunate 81-year-old lady, originally admitted for evaluation of chest pain and found to have mildly elevated troponin's with EKG changes concerning for acute myocardial infarction. Cardiac catheterization demonstrated left main disease. The patient was evaluated by cardiothoracic surgery, and taken to the OR for coronary artery bypass graft surgery. Surgery was performed on 10/26/2016. During the procedure per the chart, patient had multiple episodes of cardiac arrest requiring prolonged CPR per chart. Intra- aortic balloon pump was placed. The patient was taken to Intensive Care Unit where she remained on mechanical ventilation overnight. This morning she remains somnolent on mechanical ventilation, unresponsive to stimuli. Preliminary EEG shows slow wave low amplitude findings. MEDICATION: Per chart. ALLERGIES: NONE. SOCIAL HISTORY: Nonsmoker. No alcohol. No history of drug use. FAMILY HISTORY: Noncontributory. REVIEW OF SYSTEMS: A 12-point review of systems, unable to perform. PHYSICAL EXAMINATION: GENERAL: A well-nourished, well-developed lady, comfortable at rest. HEENT: Pupils are fixed and dilated. No response to gag, no corneal reflex. No doll's eyes. No withdrawal to noxious stimuli. VITAL SIGNS: Temperature 98, pulse is 60, blood pressure 60/28. O2 saturation 96 percent on FiO2 of 100 percent. HEART: S1, S2. II/ systolic ejection murmur. CHEST: Diminished air entry bilaterally. ABDOMEN: Soft, nontender. No guarding or rebound. EXTREMITIES: No cyanosis, clubbing or edema. NEUROLOGICALLY: Unable to assess. LABORATORY: White count 8.3, hemoglobin 11.2, and platelets of 84,000. Chemistry shows a BUN of 15, creatinine 1.53. Bicarbonate on arterial blood gas was 8.9, despite replacement with intravenous bicarbonate. Chest x-ray demonstrates mild increase in perihilar edema. IMPRESSION: 1. Recent acute coronary event with multivessel disease. Status post-coronary artery bypass graft complicated by prolonged ventricular fibrillation cardiac arrest, now with likely anoxic brain injury. 2. In addition, patient probably has disseminated intravascular coagulation with acute kidney injury. Likely secondary to acute tubular necrosis. PLAN: 1. The patient will require continue mechanical ventilation. 2. Continue vasopressor support. 3. Replacement of electrolytes for intravenous bicarbonate drip. 4. Rate control. 5. Fluid resuscitation. 6. Overall prognosis is extremely poor given neurological findings. Discussed with family at bedside. Pending further cardiothoracic and Neurology recommendations. Dictated By: Dewey Roman MD /martin/sharon /Document#: [id number]
--- NOTE | 2016-10-27 20:18 | EN ---
Date/Time of Note Date/Time of Note DATE: 10/27/16 TIME: 20:16 Event Note Medicine Medicine Event Note Pronouncement note Patient seen and examined at the bedside. No response to verbal stimuli. No responise to tactile stimuli. No response to vigorous sternal rub. No heart sounds appreciated on auscultation. Pupils fixed and non reactive to light. Patient pronounced at 8:10pm. Family present at the bedside. Primary team aware. AUSTIN MERCHANT Oct 27, 2016 20:18
--- NOTE | 2016-10-28 19:43 | DS ---
Date/Time of Note Date/Time of Note DATE: 10/28/16 TIME: 19:42 Discharge Summary Admission/Discharge Info Admit Date/Time Oct 26, 2016 at 22:31 Discharge Date/Time Oct 27, 2016 at 20:45 Discharge Diagnosis Anoxic brain injury Hx of Present Illness 81 yo female without significant PMH who developed CP and syncopized day prior to arrival. Came to ED where found to have mild troponin elevation and inferior ST elevations. Taken urgently to cath laboratory technician where angiography showed takeoff of LAD and LCx from ostium, equivialent to LM disease. No intervention thus performed, transferred to ICU where she was scheduled for CABG to be performed today Currently feels well, no complaints Hospital Course 81 yo female presenting with STEMI with obstruction in proximal LAD takeoff of ostium, equivalent to LM disease. Went for CABG, suffered cardiac arrest from RV failure and anoxic brain injury, now in cardiogenic shock and respiratory failure. Patient was continued on vasopressors but in the following day. Made DNR according to family wishes Primary Care Provider Care Physician No Primary CASSIA BENDER MD Oct 28, 2016 19:43
== END 2016-10-27 20:45 | disposition expired | DRG 228 ==
LOC: E/R 12:17 → CCL 12:45 → SDS 12:45 → ICU 14:03 → CCL 14:03 → ICU 10-26 11:56 → OBSVTOIN 10-26 22:31
PROVIDERS: ADMIT Internal Medicine; ATTEND Internal Medicine
PROC: 4A023N7 Measurement of Cardiac Sampling and Pressure, Left Heart, Percutaneous Approach (ICD-10-PCS; 2016-10-25)
PROC: B211YZZ Fluoroscopy of Multiple Coronary Arteries using Other Contrast (ICD-10-PCS; 2016-10-25)
PROC: 02C00ZZ Extirpation of Matter from Coronary Artery, One Artery, Open Approach (ICD-10-PCS; 2016-10-26)
PROC: 5A02210 Assistance with Cardiac Output using Balloon Pump, Continuous (ICD-10-PCS; 2016-10-26)
PROC: 5A12012 Performance of Cardiac Output, Single, Manual (ICD-10-PCS; 2016-10-26)
PROC: 06BP4ZZ Excision of Right Saphenous Vein, Percutaneous Endoscopic Approach (ICD-10-PCS; 2016-10-26)
PROC: 02100Z9 Bypass Coronary Artery, One Artery from Left Internal Mammary, Open Approach (ICD-10-PCS; 2016-10-26)
PROC: 5A1221Z Performance of Cardiac Output, Continuous (ICD-10-PCS; 2016-10-26)
PROC: 5A1223Z Performance of Cardiac Pacing, Continuous (ICD-10-PCS; 2016-10-26)
PROC: 30233K1 Transfusion of Nonautologous Frozen Plasma into Peripheral Vein, Percutaneous Approach (ICD-10-PCS; 2016-10-26)
PROC: 30233N1 Transfusion of Nonautologous Red Blood Cells into Peripheral Vein, Percutaneous Approach (ICD-10-PCS; 2016-10-26)
PROC: 30233R1 Transfusion of Nonautologous Platelets into Peripheral Vein, Percutaneous Approach (ICD-10-PCS; 2016-10-26)
PROC: 0213093 Bypass Coronary Artery, Four or More Arteries from Coronary Artery with Autologous Venous Tissue, Open Approach (ICD-10-PCS; principal; 2016-10-26 09:00)
DX: I21.02 ST elevation (STEMI) myocardial infarction involving left anterior descending coronary artery (principal); J95.821 Acute postprocedural respiratory failure; R57.0 Cardiogenic shock; I49.01 Ventricular fibrillation; I50.9 Heart failure, unspecified; G93.1 Anoxic brain damage, not elsewhere classified; G97.81 Other intraoperative complications of nervous system; I10 Essential (primary) hypertension; T82.868A Thrombosis due to vascular prosthetic devices, implants and grafts, initial encounter; I25.10 Atherosclerotic heart disease of native coronary artery without angina pectoris; I46.2 Cardiac arrest due to underlying cardiac condition; Y83.2 Surgical operation with anastomosis, bypass or graft as the cause of abnormal reaction of the patient, or of later complication, without mention of misadventure at the time of the procedure; Y92.234 Operating room of hospital as the place of occurrence of the external cause
CPT/HCPCS: 36415; 36430; 36592; 36600; 71010; 74000; 80048; 80053; 82550; 82553; 82803; 82962; 83036; 83735; 84484; 85025; 85610; 85730; 86850; 86900; 86901; 86920; 86945; 88304; 93005; 93306; 93312; 93320; 93325; 93458; 93880; 94002; 94003; 94770; J1940; C1887; G0378; J0171; J0282; J0690; J1100; J1265; J1644; J1720; J1815; J2001; J2150; J2250; J2260; J2370; J2440; J2720; J3010; J3370; J3475; J3480; J7030; J7040; J7042; J7060; J7070; P9016; P9035; P9047; P9059; Q9967